=== PATIENT | male | born 1950 | race Caucasian/White ===

== ENCOUNTER 2018-03-06 15:14 | Observation (INO) | payer MEDICARE, OTHER ==
[2018-03-06 15:47] LABS: #Basophils 0.1 thou/uL (0.0-0.2); #Eosinphils 0.3 thou/uL (0.0-0.7); #Lymphocytes 2.3 thou/uL (1.20-3.40); #Monocytes 0.8 thou/uL (0.11-0.59); #Neutrophils 6.1 thou/uL (1.40-6.50); %Basophils 0.6 % (0.0-1.0); %Lymphocytes 24.6 % (21.0-51.0); %Monocytes 8.3 % (0.0-10.0); %Neutrophils 63.6 % (42.0-75.0); Hemoglobin 16.6 g/dL (14.0-18.0); Mean Corpuscular HGB CONC 34.2 g/dL (32.0-36.0); Mean Corpuscular Hemoglobin 32.6 pg (27.0-31.0); Mean Corpuscular Volume 95.3 fl (80.0-94.0); Mean Platelet Volume 7.3 fL (7.4-10.4); Platelet Count 145 thou/uL (130-400); Red Blood Cell (RBC) Count 5.11 mill/uL (4.70-6.10); White Blood Cell (WBC) Count 9.5 thou/uL (4.8-10.8)
--- NOTE | 2018-03-06 15:58 | RAD ---
CHEST 1 VIEW: COMPARISON: 05/06/16. HISTORY: Pain. FINDINGS: There are sternotomy wires. Normal cardiac silhouette. The pulmonary vessels and hilum are normal. Costophrenic angles are clear. No masses or consolidation. No pneumothorax or osseous abnormalitie s. IMPRESSION: No acute cardiopulmonary process. POS: [facility]
[2018-03-06 16:13] LABS: CKMB 3.4 ng/mL (0-6.6); Troponin I Less than 0.010 ng/mL (< 0.028)
[2018-03-06 16:14] LABS: ALT (SGPT) 18 U/L (8-55); AST (SGOT) 20 U/L (5-34); Albumin 4.1 g/dL (3.4-4.8); Alkaline Phosphatase 114 U/L (40-150); Anion Gap 12 mmol/L (10-20); BUN (Urea Nitrogen) 24 mg/dL (8.4-25.7); Bilirubin, Total 0.5 mg/dL (0.2-1.2); CK (CPK) 169 U/L (30-200); Calc. Creatinine Clearance 0 mL/min (70-130); Carbon Dioxide 20 mmol/L (23-31); Chloride 106 mmol/L (98-107); Estimated GFR-MDRD 86; Globulin 3.3 g/dL (2.4-3.5); Glucose 100 mg/dL (80-115); Potassium 4.1 mmol/L (3.5-5.1); Protein, Total 7.4 g/dL (5.8-8.1); Sodium 134 mmol/L (136-145)
[2018-03-06 18:59] LABS: Troponin I Less than 0.010 ng/mL (< 0.028)
[2018-03-06] MEDS ORDERED: Acetaminophen 325 MG TAB PO PRN (19:15)
[2018-03-06] MEDS ORDERED: Ondansetron HCl/PF 4 MG/2 ML Vial IVP PRN ×2 (19:15→19:18)
[2018-03-06] MEDS ORDERED: Ondansetron ODT 4 MG TAB SL PRN (19:15)
[2018-03-06] MEDS ORDERED: Ondansetron ODT 4 MG TAB PO PRN (19:18)
[2018-03-06] MEDS ORDERED: Dextrose 50% Abboject 50 ML SYRINGE SLOW IVP PRN (19:18)
[2018-03-06] MEDS ORDERED: HumaLOG 300 UNITS/3 ML VIAL SC PRN ×2 (19:18)
[2018-03-06] MEDS ORDERED: Dextrose 5% in Water 1,000 ML IV PRN (19:18)
[2018-03-06 19:24] VITALS: BMI 32.3
[2018-03-06] MEDS ORDERED: Enoxaparin Sodium 40 MG/0.4 ML SYRINGE SC SCH (19:30)
[2018-03-06 20:00] LABS: CKMB 2.9 ng/mL (0-6.6); Troponin I Less than 0.010 ng/mL (< 0.028)
[2018-03-06] MEDS: Nitroglycerin 2% Ointment 1 INCH/1 GM Packet TOP SCH (20:01)
[2018-03-06] MEDS: Famotidine 20 MG TAB PO SCH (20:02)
[2018-03-06] MEDS: Amlodipine 5 MG TAB PO SCH (20:02)
[2018-03-06] MEDS: Acetaminophen 325 MG TAB PO PRN (20:04)
--- NOTE | 2018-03-06 20:09 | HP ---
DATE OF ADMISSION: 03/06/2018 PRIMARY CARE PHYSICIAN: Out of town. PRIMARY VETERINARY PHYSIOLOGIST: Dr. Zepeda. TIME OF SERVICE: 1745 hours. CHIEF COMPLAINT: Chest pressure. HISTORY OF PRESENT ILLNESS: Mr. Wilson is a 67-year-old white male with history of diabetes, coronar y artery disease, status post bypass in 2014, paroxysmal atrial fibrillation, sciatica and mental ret ardation who presents to the emergency department today via EMS for chest pressure. The patient was working in his yard earlier today around 7:30, had no symptoms. He was spraying some bushes around 1300 hours today and developed chest pressure in the center of his chest. It did not radiate into his jaw or his arm. He was outside working and was already sweating, so does not know i f he had any new sweats. No shortness of breath, no fevers, chills, no cough or sputum production. No reflux symptoms. He took an aspirin prior to arrival. EMS was called and on route, they gave him sublingual nitroglyc fitz and his pain resolved. Workup in the emergency department was unremarkable. We were called for admit. The patient has no other further history. His mother insists that his bypass surgery was initially i n 2004; however, I am looking at the actual note from [address] Tolu Boucher. PAST MEDICAL HISTORY: 1. Paroxysmal atrial fibrillation. 2. Coronary artery disease, status post bypass surgery in 2014. 3. Mental retardation. 4. Sciatica. 5. Diabetes mellitus type 2. PAST SURGICAL HISTORY: 1. Include coronary artery bypass grafting in 2014. This consisted of a CHRISTENSEN to the LAD, reverse sa phenous vein graft to diagonal, reverse saphenous vein graft to obtuse marginal, and reverse saphenou s vein graft to the PDA. He also did a ligation of left atrial appendage and epicardial maze. 2. Hernia repair, remotely. 3. Tonsillectomy. HOME MEDICATIONS: 1. Benazepril 40 mg p.o. b.i.d. 2. Invokana 100 mg p.o. daily. 3. Amlodipine 5 mg p.o. b.i.d. 4. Aspirin 81 mg daily. ALLERGIES: ATORVASTATIN, MULTAQ, METFORMIN, and METOPROLOL, reactions are unknown. Apparently the M ULTAQ or the ATORVASTATIN made him "crazy." FAMILY HISTORY: Negative for clotting or bleeding disorder, no immune dysfunction and no premature c oronary artery disease. SOCIAL HISTORY: He is mentally retarded and lives at home with his mother. No IV drug use, no tobac co, no alcohol usage. He does not work. REVIEW OF SYSTEMS: All systems reviewed and negative except as stated as per HPI. PHYSICAL EXAMINATION: VITAL SIGNS: Temperature is 98.7, pulse 92, blood pressure 114/83, respiratory rate 26, satting 97% on room air. GENERAL: He is awake. He is alert. He is oriented x3. He is a well-developed, well-nourished olde r male, who appears to be in no distress. HEENT: Normocephalic and atraumatic. Pupils are equal, round, reactive to light bilaterally, mucous membranes are moist. He has no visible lesions. No thrush. NECK: Supple. He has no lymphadenopathy, JVD, or thyromegaly. HEART: He has normal carotid upstrokes without bruits. LUNGS: Clear to auscultation bilaterally. No wheezes, no rales, no rhonchi. He has no prolonged ex piratory phase. CARDIOVASCULAR: Normal S1 and S2. No S3 or S4. No audible murmurs. ABDOMEN: Soft. It is nontender, nondistended, no masses or organomegaly. Sternotomy wound is well healed. EXTREMITIES: Showed no cyanosis, no clubbing with 2+ distal pulses. Does have trace pedal edema. SKIN: Warm, moist, and well perfused. He has no other rashes or lesions. NEUROLOGIC: Cranial nerves II-XII are grossly intact. No focal deficits, 5/5 strength, and a normal speech pattern. MUSCULOSKELETAL: Normal to inspection. Large joints appeared normal. There is no inflammation. No palpable effusions. LABORATORY DATA: Sodium 134, potassium 4.1, chloride 106, bicarb 20, BUN 24, creatinine 0.87, glucos e 100 and calcium 9.0. Liver function is completely within normal limits. CBC showed a white count of 9.5 with normal differential, hemoglobin 16.6, hematocrit of 40.7, platelet count 145,000. CK-MB was normal 3.4, troponin I was undetectable less than 0.010. Chest x-ray showed no acute cardiopulmo nary disease. ASSESSMENT AND PLAN: 1. Chest pain: Place the patient on nitro paste, daily aspirin, his home medications. We will hold off on beta blockade due to his allergy. Watch him on the monitor overnight. We will get serial ca rdiac biomarkers; if these are negative, undergo nuclear stress test in the morning and if negative, can go home. If abnormal, then I would notify Dr. Zepeda. 2. Paroxysmal atrial fibrillation: The patient is not on any rate control. He is on amlodipine onl y. We will watch him on telemetry. EKG is currently in sinus rhythm. 3. Mental retardation. 4. History of sciatica. 5. History of diabetes mellitus type 2, on Invokana. Will use sliding scale insulin for correction and hold his medicines as he will be n.p.o. after midnight. 6. Hypertension, controlled with benazepril and amlodipine.
[2018-03-06 21:57] LABS: Troponin I Less than 0.010 ng/mL (< 0.028)
[2018-03-07 03:17] LABS: #Basophils 0.1 thou/uL (0.0-0.2); #Eosinphils 0.3 thou/uL (0.0-0.7); #Lymphocytes 1.9 thou/uL (1.20-3.40); #Monocytes 0.8 thou/uL (0.11-0.59); #Neutrophils 5.2 thou/uL (1.40-6.50); %Basophils 0.8 % (0.0-1.0); %Eosinophils 3.3 % (0.0-10.0); %Lymphocytes 23.2 % (21.0-51.0); %Monocytes 9.9 % (0.0-10.0); Hemoglobin 16.5 g/dL (14.0-18.0); Mean Corpuscular HGB CONC 33.4 g/dL (32.0-36.0); Mean Corpuscular Hemoglobin 32.2 pg (27.0-31.0); Mean Corpuscular Volume 96.2 fl (80.0-94.0); Mean Platelet Volume 7.1 fL (7.4-10.4); Platelet Count 144 thou/uL (130-400); Red Blood Cell (RBC) Count 5.12 mill/uL (4.70-6.10); White Blood Cell (WBC) Count 8.3 thou/uL (4.8-10.8)
[2018-03-07 03:39] LABS: Anion Gap 11 mmol/L (10-20); BUN (Urea Nitrogen) 19 mg/dL (8.4-25.7); Calc. Creatinine Clearance 111 mL/min (70-130); Calcium 9.2 mg/dL (7.8-10.44); Carbon Dioxide 26 mmol/L (23-31); Chloride 105 mmol/L (98-107); Cholesterol 139 mg/dl (< 200 Desired); Estimated GFR-MDRD 79; Glucose 103 mg/dL (80-115); HDL Cholesterol 35 mg/dL (>60 Neg Risk); LDL Cholesterol, Calculated 78 mg/dL; Magnesium 2.1 mg/dL (1.6-2.6); Potassium 4.5 mmol/L (3.5-5.1); Sodium 137 mmol/L (136-145); Triglycerides 131 mg/dL (Less than 150)
[2018-03-07 03:42] LABS: CKMB 3.3 ng/mL (0-6.6); Troponin I Less than 0.010 ng/mL (< 0.028)
[2018-03-07] MEDS: Nitroglycerin 2% Ointment 1 INCH/1 GM Packet TOP SCH ×2 (04:20→11:40)
[2018-03-07] MEDS: Famotidine 20 MG TAB PO SCH (07:46)
[2018-03-07] MEDS: Amlodipine 5 MG TAB PO SCH (07:46)
[2018-03-07] MEDS ORDERED: Aspirin 325 MG TAB PO SCH (09:00)
[2018-03-07 11:37] VITALS: BP 131/74; TEMP 98.3
[2018-03-07] MEDS: Acetaminophen 325 MG TAB PO PRN (11:45)
--- NOTE | 2018-03-07 12:11 | NM ---
NUCLEAR MEDICINE MYOCARDIAL PERFUSION SCAN: DATE: 03/07/18. COMPARISON: None. HISTORY: Chest pain, history of coronary artery disease. TECHNIQUE: SPECT imaging of the left ventricular myocardium is obtained during rest and stress following the int ravenous administration of 11.0 and 33.0 mCi Technetium 99m labeled sestamibi. FINDINGS: There is a fixed defect at the cardiac apex which may represent an area of prior ischemia. There is mild fixed defect involving the inferior wall, likely on the basis of diaphragmatic attenuation. No reversible defect is identified. TID is 1.09, EDV is 103 mL, ESV is 51 mL with a left ventricular ej ection fraction calculated at 51%. There is global hypokinesis noted on left ventricular wall motion imaging. IMPRESSION: 1. No reversible defect. 2. Fixed defect at cardiac apex. 3. Left ventricular ejection fraction 51% with mild global hypokinesis noted. POS: [facility]
[2018-03-07] MEDS ORDERED: ADENOSINE 60 MG/20 ML VIAL ONE (14:09)
--- NOTE | 2018-03-07 15:27 | DIS ---
DATE OF ADMISSION: 03/06/2018 DATE OF DISCHARGE: 03/07/2018 DISCHARGE DIAGNOSES: 1. Chest pain. 2. History of paroxysmal atrial fibrillation. 3. History of coronary artery disease, status post bypass surgery in 2014 with CHRISTENSEN to the LAD and s aphenous vein graft to the diagonal with reverse saphenous vein graft to the obtuse marginal, and rev erse saphenous vein graft to the PDA. 4. Mild mental retardation. 5. Diabetes mellitus. HISTORY: This patient is a 67-year-old white male with a history of diabetes and coronary artery dis ease, status post bypass in 2014 as stated above. The patient presented to the emergency department with chest pressure. The patient had been outside working when he developed some discomfort in his c hest without radiation or significantly associated symptoms. The patient took an aspirin and was sub sequently given nitroglycerin en route by EMS and was pain free in the emergency department. His ini tial workup was negative including normal troponins and no significant EKG findings. HOSPITAL COURSE: The patient was placed in observation status. He had serial troponins, which remai karina negative. He remained symptom free and subsequently underwent stress testing on the morning of , which revealed no reversible defect, fixed defect at the apex, likely attenuation artifact with an ejection fraction of 51% and mild global hypokinesis. The patient's previous echocardiogram from 2014 revealed an ejection fraction around 50%-55%. Given the fact that the patient had negative troponins and a stress test revealing no significant reversible ischemia or change in his ejection f raction, the patient was felt to be stable for discharge to home. DISCHARGE DISPOSITION: The patient will be discharged to home. DISCHARGE MEDICATIONS: He will continue with his usual home medications including amlodipine 5 mg p. o. b.i.d., aspirin 325 mg every day, benazepril 40 mg b.i.d., Invokana 100 mg q.p.m., glipizide ER 10 mg q.a.m., multivitamin 1 p.o. daily, and will have a new prescription for nitroglycerin sublingual to use p.r.n. for chest pain. DIET: The patient will remain on a heart healthy diet. DISCHARGE FOLLOWUP: He is to follow up with Dr. Zepeda this week. He should return to the emerge ncy department should he have any problems prior to that time. He is to keep his activity level mode st until he is evaluated by Dr. Zepeda.
== END 2018-03-07 14:12 | disposition home or self-care (01) ==
LOC: ERS 15:14 → 2SW 18:10
PROVIDERS: ADMIT Internal Medicine Infectious Disease; ATTEND Internal Medicine Infectious Disease
DX: R07.9 Chest pain, unspecified (principal); I48.0 Paroxysmal atrial fibrillation; I10 Essential (primary) hypertension; E11.9 Type 2 diabetes mellitus without complications; F79 Unspecified intellectual disabilities; I25.10 Atherosclerotic heart disease of native coronary artery without angina pectoris; Z79.82 Long term (current) use of aspirin; Z79.899 Other long term (current) drug therapy; Z95.1 Presence of aortocoronary bypass graft; Z88.8 Allergy status to other drugs, medicaments and biological substances
CPT/HCPCS: 71045; 78452; 80048; 80053; 80061; 82550; 82553 ×3; 82962 ×2; 83036; 83735; 84484 ×3; 85025 ×2; 93005; 93017; 96372; 99285; A9500; G0378; 36415; 36416; J0153; J1650

== ENCOUNTER 2018-03-31 09:49 | Emergency (ER) | payer MEDICARE, OTHER ==
[2018-03-31 11:02] LABS: #Eosinphils 0.1 thou/uL (0.0-0.7); #Monocytes 0.8 thou/uL (0.11-0.59); #Neutrophils 7.2 thou/uL (1.40-6.50); %Basophils 0.5 % (0.0-1.0); %Eosinophils 0.9 % (0.0-10.0); %Lymphocytes 19.6 % (21.0-51.0); %Monocytes 7.5 % (0.0-10.0); %Neutrophils 71.5 % (42.0-75.0); Hemoglobin 17.3 g/dL (14.0-18.0); Mean Corpuscular HGB CONC 34.2 g/dL (32.0-36.0); Mean Corpuscular Hemoglobin 32.1 pg (27.0-31.0); Mean Platelet Volume 7.5 fL (7.4-10.4); Platelet Count 141 thou/uL (130-400); RBC Distribution Width 11.8 % (11.5-14.5); White Blood Cell (WBC) Count 10.1 thou/uL (4.8-10.8)
--- NOTE | 2018-03-31 11:22 | RAD ---
PORTABLE CHEST ONE VIEW: Date: 03-31-18 Time: 10:23 a.m. History: Dyspnea. FINDINGS: Comparison is made with exam of 03-06-18. Changes of median sternotomy are again seen. The heart size is normal. The aorta is tortuous. The marissa gs are well expanded without focal areas of consolidation, pneumothorax, or pleural effusions. IMPRESSION: No radiographic evidence of acute cardiopulmonary process. POS: [facility]
[2018-03-31 11:23] LABS: ALT (SGPT) 16 U/L (8-55); AST (SGOT) 16 U/L (5-34); Albumin 4.3 g/dL (3.4-4.8); Alkaline Phosphatase 115 U/L (40-150); Anion Gap 12 mmol/L (10-20); BUN (Urea Nitrogen) 19 mg/dL (8.4-25.7); Bilirubin, Total 0.6 mg/dL (0.2-1.2); Calc. Creatinine Clearance 0 mL/min (70-130); Calcium 9.4 mg/dL (7.8-10.44); Carbon Dioxide 22 mmol/L (23-31); Chloride 103 mmol/L (98-107); Estimated GFR-MDRD 86; Globulin 3.3 g/dL (2.4-3.5); Glucose 166 mg/dL (80-115); Potassium 4.4 mmol/L (3.5-5.1); Protein, Total 7.6 g/dL (5.8-8.1); Sodium 133 mmol/L (136-145)
[2018-03-31 11:27] LABS: CKMB 3.4 ng/mL (0-6.6); Troponin I Less than 0.010 ng/mL (< 0.028)
== END 2018-03-31 13:52 | disposition home or self-care (01) ==
LOC: ERS 09:49
DX: R06.00 Dyspnea, unspecified (principal); I48.91 Unspecified atrial fibrillation; E11.9 Type 2 diabetes mellitus without complications; I10 Essential (primary) hypertension; Z79.82 Long term (current) use of aspirin; Z79.01 Long term (current) use of anticoagulants; Z79.899 Other long term (current) drug therapy
CPT/HCPCS: 36415; 71045; 80053; 82553; 83880; 84484; 85025; 85379; 93005; 94640; 94799; J7620

== ENCOUNTER 2019-03-28 12:31 | Observation (INO) | payer MEDICARE, OTHER ==
[2019-03-28 12:57] LABS: #Eosinphils 0.1 thou/uL (0.0-0.7); #Lymphocytes 1.9 thou/uL (1.20-3.40); #Monocytes 0.8 thou/uL (0.11-0.59); #Neutrophils 6.4 thou/uL (1.40-6.50); %Basophils 0.4 % (0.0-1.0); %Eosinophils 1.5 % (0.0-10.0); %Lymphocytes 20.4 % (21.0-51.0); %Monocytes 8.4 % (0.0-10.0); %Neutrophils 69.3 % (42.0-75.0); Hemoglobin 17.3 g/dL (14.0-18.0); Mean Corpuscular Hemoglobin 31.3 pg (27.0-31.0); Mean Corpuscular Volume 94.8 fL (78.0-98.0); Mean Platelet Volume 8.3 fL (7.4-10.4); Platelet Count 145 thou/uL (130-400); RBC Distribution Width 12.3 % (11.5-14.5); Red Blood Cell (RBC) Count 5.52 mill/uL (4.70-6.10); White Blood Cell (WBC) Count 9.2 thou/uL (4.8-10.8)
[2019-03-28 13:42] LABS: ALT (SGPT) 23 U/L (8-55); AST (SGOT) 26 U/L (5-34); Albumin 4.4 g/dL (3.4-4.8); Alkaline Phosphatase 135 U/L (40-150); Anion Gap 13 mmol/L (10-20); BUN (Urea Nitrogen) 26 mg/dL (8.4-25.7); Bilirubin, Total 0.7 mg/dL (0.2-1.2); Calc. Creatinine Clearance 0 mL/min (70-130); Calcium 9.7 mg/dL (7.8-10.44); Carbon Dioxide 20 mmol/L (23-31); Chloride 102 mmol/L (98-107); Estimated GFR-MDRD Greater than 90; Globulin 3.5 g/dL (2.4-3.5); Glucose 151 mg/dL (80-115); Potassium 4.7 mmol/L (3.5-5.1); Protein, Total 7.9 g/dL (5.8-8.1); Sodium 130 mmol/L (136-145)
[2019-03-28 14:02] LABS: CK (CPK) 182 U/L (30-200)
--- NOTE | 2019-03-28 14:06 | RAD ---
PORTABLE CHEST ONE VIEW: 03/28/19 at 12:48 p.m. HISTORY: Chest pain. FINDINGS: Comparison made with exam of 03/31/18. Changes of median sternotomy again seen. The lungs are expanded without focal areas of consolidation, pneumothoraces, or pleural effusions. The heart size is normal. IMPRESSION: No radiographic evidence of acute cardiopulmonary process. POS: [facility]
[2019-03-28] MEDS ORDERED: Aspirin 325 MG TAB ONE (14:21)
--- NOTE | 2019-03-28 14:23 | PDOC.FPRHP ---
- History of Present Illness Chief Complaint: Chest Pain History of Present Illness: 68 yo male here after being sent over from Dr. Zepeda office for chest pain. Pt reports having chest pain starting this morning. Reports pain as substernal. Describes pain as a big knot. States he feels like it did before. Says it feels like oxygen not getting to his heart. Hurts when laying in bed. Nothing made pain worse. Pain lasted for an hour. Pain went away on its own. Pt reports having episode of this chest pain almost every day. Doesn't know how long episodes last. Pt reports feeling SOB during episodes. Denies any nausea, vomiting, palpitations, sweating. Denies any headaches vision changes, cough, sore throat. Pt reports getting dizzy. Reports some numbness and tingling in both arms at times. Reports having rash on his chest. - Allergies/Adverse Reactions Allergies Allergy/AdvReac Type Severity Reaction Status Date / Time atorvastatin calcium Allergy Verified 05/06/16 16:57 [From Lipitor] dronedarone HCl [From Multaq] Allergy Verified 05/06/16 16:57 metformin Allergy HEADACHES Verified 05/27/15 15:28 metoprolol Allergy Verified 05/06/16 16:57 - Home Medications Medication Instructions Recorded Confirmed Type Multivit-Mins/Iron/Folic/Lycop 1 each PO DAILY 05/27/15 03/28/19 History [Centrum Ultra Men's Tablet] Amlodipine [Norvasc] 5 mg PO BID 05/06/16 03/28/19 History Aspirin [Ecotrin Regular Strength] 81 mg PO DAILY 05/06/16 03/28/19 History Benazepril HCl 40 mg PO BID 05/06/16 03/28/19 History Canagliflozin [Invokana] 100 mg PO QPM 05/06/16 03/28/19 History glipiZIDE [glipiZIDE ER] 10 mg PO QAM 03/06/18 03/28/19 History Nitroglycerin 0.4 mg SL Q5MIN PRN #30 tab.subl 03/07/18 03/28/19 Rx - History PMHx: Paroxysmal atrial fibrilation, CAD, Bypass in 2015, Mental Retardation, Sciatica, DMII PSHx: Bypass 2015- CHRISTENSEN to the LAD, reverse saphenous vein graft to diagnol, reverse saphenous vein graft to obtuse marginal, and reverse saphenous vein graft to the PDA. Did ligation of left atrial appendage and epicardial maze, Hernia repair, tonsillectomy FHx: Insignificant Social: Reports daily beer, Denies any tobacco or illicit drug use. Pt reports living by himself. Pt reports sister helping him with medial managment and helps with bills. - Review of Systems General: denies: fever/chills, weight/appetite/sleep changes Eyes: denies: eye pain, vision changes ENT: denies: nasal congestion, rhinorrhea Respiratory: reports: shortness of breath. denies: cough, congestion Cardiovascular: reports: chest pain. denies: palpitation, edema, paroxysmal nocturnal dyspnea, orthopnea Gastrointestinal: denies: nausea, vomiting, diarrhea, constipation, abdominal pain Genitourinary: denies: incontinence Skin: reports: rashes (reports pain in his previous cabg scar. States it is more red). denies: lesions, itching Musculoskeletal: reports: pain. denies: tenderness, stiffness Neurological: denies: numbness, syncope, seizure Psychological: denies: anxiety, depression - Vital signs BP: 119/69 HR: 91 RR: 20 Tmax: 89.4 Pox: 96% on RA Wt: 109 kg - Physical Exam Constitutional: NAD, awake, alert and oriented HEENT: normocephalic and atraumatic, PERRLA, EOMI, conjunctiva clear Neck: supple, no LAD Heart: normal S1/S2, no murmurs/rubs/gallops, pulses present, no edema, other ( Irregularly irregular rhythm) Lungs: CTAB, no respiratory distress, good air movement, no rales/rhonchi, no wheezing Abdomen: soft, non-tender, bowel sounds present, no masses/distention Musculoskeletal: normal structure, normal tone, ROM grossly normal Neurological: no focal deficit, CN II-XII intact Skin: no rash/lesions, good turgor, capillary refill <2 seconds Heme/Lymphatic: no unusual bruising or bleeding, no purpura Psychiatric: intact recent and remote memory FMR H&P: Results - Labs Result Diagrams: 03/28/19 12:40 03/28/19 12:40 Lab results: WBC 9.2 thou/uL (4.8-10.8) 03/28/19 12:40 Hgb 17.3 g/dL (14.0-18.0) 03/28/19 12:40 Hct 52.3 % (42.0-52.0) H 03/28/19 12:40 MCV 94.8 fL (78.0-98.0) 03/28/19 12:40 Plt Count 145 thou/uL (130-400) 03/28/19 12:40 Neutrophils % 69.3 % (42.0-75.0) 03/28/19 12:40 Sodium 130 mmol/L (136-145) L 03/28/19 12:40 Potassium 4.7 mmol/L (3.5-5.1) 03/28/19 12:40 Chloride 102 mmol/L (98-107) 03/28/19 12:40 Carbon Dioxide 20 mmol/L (23-31) L 03/28/19 12:40 BUN 26 mg/dL (8.4-25.7) H 03/28/19 12:40 Creatinine 0.84 mg/dL (0.7-1.3) 03/28/19 12:40 Glucose 151 mg/dL (80-115) H 03/28/19 12:40 Calcium 9.7 mg/dL (7.8-10.44) 03/28/19 12:40 Total Bilirubin 0.7 mg/dL (0.2-1.2) 03/28/19 12:40 AST 26 U/L (5-34) 03/28/19 12:40 ALT 23 U/L (8-55) 03/28/19 12:40 Alkaline Phosphatase 135 U/L (40-150) 03/28/19 12:40 Creatine Kinase 182 U/L (30-200) 03/28/19 12:40 Serum Total Protein 7.9 g/dL (5.8-8.1) 03/28/19 12:40 Albumin 4.4 g/dL (3.4-4.8) 03/28/19 12:40 - EKG Interpretation EKG: Atrial fibrillation - Radiology Interpretation Chest x-ray Status: image reviewed by me, report reviewed by me Additional comment: No acute cardiopulmonary abnormality FMR H&P: A/P - Problem List (1) Atypical chest pain Current Visit: Yes Status: Acute Code(s): R07.89 - OTHER CHEST PAIN (2) Paroxysmal atrial fibrillation Current Visit: Yes Status: Chronic Code(s): I48.0 - PAROXYSMAL ATRIAL FIBRILLATION (3) Hyponatremia Current Visit: Yes Status: Acute Code(s): E87.1 - HYPO-OSMOLALITY AND HYPONATREMIA (4) HTN (hypertension) Current Visit: Yes Status: Chronic Code(s): I10 - ESSENTIAL (PRIMARY) HYPERTENSION (5) Mental disability Current Visit: Yes Status: Chronic Code(s): F79 - UNSPECIFIED INTELLECTUAL DISABILITIES (6) CAD (coronary artery disease) of bypass graft Current Visit: No Status: Chronic Code(s): I25.810 - ATHEROSCLEROSIS OF CABG W/O ANGINA PECTORIS (7) Diabetes type 2, controlled Current Visit: No Status: Chronic Code(s): E11.9 - TYPE 2 DIABETES MELLITUS WITHOUT COMPLICATIONS - Plan Atypical chest pain, with concern for Unstable Angina -Sent by Dr. Zepeda from clinic, with recent positive stress. Patient has had chest pain at rest, reports it occurs daily. He has a history of 4 vessel CABG. -With substernal chest pain he reports SOB, occasional numbness down bilat arms -In ED: chest pain is resolved, EKG showed rate controlled Atrial fibrillation, given ASA -AM FLP pending. Continue home benazepril. -Dr. Zepeda following, appreciate recommendations -Family/MPOA not interested in cath, added imdur -Nitro and EKG PRN for chest pain. -admit to tele obs Atrial fibrillation, paroxysmal -Rate controlled DM2 -Diabetes hyperglycemia protocol, with mild SSI -Continue home glipizide, invokana -continue home lyrica Hyponatremia -BNP pending, no s/s of fluid overload -Pt reports he drink 1 beer daily, consider beer potomania -serum osmolality: low -assess urinary Na and osm HTN -BP well controlled -Continue home amlodipine Hx of Mental Retardation -MPOA is Diana rivera. [phone], . -Tried to contact sister, unable to contact her so far Daily alcohol use -Reports 1 beer/day -Ase protocol Diet: HH, CC PCP: Dr. Andrade DVT ppx: lovenox Dispo: admitted to tele obs Code status: DNAR per patient, will confirm with sister who is MPOA FMR H&P: Upper Level - Pertinent history I was with Dr. Rosie Fabian during the history taking of the patient. I scribed for her during the history. I made edits to above HPI as I saw fit. I agree with what is stated above and helped type what is seen above. Pt having signs of atypical chest pain going on for awhile now. Pt has hx of mental retardation. Sister is MPOA. Pain coms on at random times, not associated with exertion. Has SOB. - Pertinent findings No acute findings found on physical exam. Cardio: Irregularly Irregular, rate controlled. No murmurs or gallops. No JVD Resp: CTA-B. - Plan Date/Time: 03/28/19 1423 I,Vickey Gaspar. have evaluated this patient and agree with findings/plan as outlined by design intern resident. Pertinent changes/additions are listed here. Atypical Chest pain -Stress test pending. -Cardiology- Dr. Zepeda consulted. Added imdur. Follow recs. -Will give tylenol and nitro for pain -FLP, TSH, BNP pending -EKG prn for chest pain paroxysmal a. fib -rate controlled, continue to monitor DMII -continue home meds. mild SSI. Continue to monitor and adjust as needed. hyponatremia, mild Na- 130 -checking urine Na and serum osmol -Recommend PO fluids. Monitor with daily BMP. HTN -continue home meds. BP stable. Will continue to monitor as started Imdur for chest pain -Avoid BB for stress. Hx of Mental Retardation -MPOA sister. will try and contact. Addendum - Attending - Attending Attestation Date/Time: 03/28/19 2048 I personally evaluated the patient and discussed the management with Dr. Thomas Fabian I agree with the History, Examination, Assessment and Plan documented above with any addition or exceptions noted below- 68 yo male with h/o DM type 2, paroxysmal a-fib, and CAD s/p 4V CABG in [address] Zepeda office for chest pain. Pt reports having substernal chest pain starting this morning. Describes as a big knot/heaviness. Pt reports feeling SOB during episodes. Denies any nausea, vomiting, palpitations, sweating. Denies any headaches vision changes, cough, sore throat. Pt reports getting dizzy. PMH/PSH/Meds/SH reviewed and agree with resident's documentation. Afebrile VSS. Exam repeated by me and agree with resident's findings. Labs: WBC=9.2, H/H=17.3/52.3, Asu=313 , Qw=629, K=4.2, Hk=616, CO2=20, BUN/Cr=26/0.84, Fvtm=805, AST/ALT=26/23, TSH= 0.9807, Trop I < 0.010 x 3; EKG-afib rate 100, no ST changes. A/P: 1) Chest pain with h/o abnormal stress test- cardiac enzymes negative; will consult cardiology for further plan/possible cath. Started on imdur as per cardiology.
[2019-03-28] MEDS ORDERED: HumaLOG 300 UNITS/3 ML VIAL SC PRN (14:58)
[2019-03-28] MEDS ORDERED: Dextrose 50% Abboject 50 ML SYRINGE SLOW IVP PRN (14:58)
[2019-03-28] MEDS ORDERED: Ondansetron PF 4 MG/2 ML Vial IVP PRN (14:58)
[2019-03-28] MEDS ORDERED: Acetaminophen 650 MG Suppository PR PRN (14:58)
[2019-03-28] MEDS ORDERED: Ondansetron ODT 4 MG TAB PO PRN (14:58)
[2019-03-28] MEDS ORDERED: Acetaminophen 325 MG TAB PO PRN (14:58)
[2019-03-28] MEDS ORDERED: Dextrose 5% in Water 1,000 ML IV PRN (14:58)
[2019-03-28] MEDS ORDERED: Enoxaparin Sodium 40 MG/0.4 ML SYRINGE SC SCH (15:15)
[2019-03-28 15:45] VITALS: BMI 32.4
[2019-03-28 16:19] LABS: Troponin I Less than 0.010 ng/mL (< 0.028)
[2019-03-28] MEDS: Nitroglycerin 0.4 MG TAB (25 Tab Bottle) PO PRN ×3 (18:21→18:33)
[2019-03-28] MEDS ORDERED: Morphine 4 MG/ML VIAL ONE (18:42)
[2019-03-28 19:11] LABS: Troponin I Less than 0.010 ng/mL (< 0.028)
[2019-03-28] MEDS ORDERED: Morphine 2 MG/ML SYRINGE SLOW IVP SCH (19:15)
--- NOTE | 2019-03-28 20:39 | PDOC.EVN ---
Event Note - Event Note Event Note: Pt reported substernal chest pain around 1900. EKG w/o changes. Nitro x3 given and pain did resolve with IV Morphine. Plan to keep NPO tonight, but no plans at this point for cath or stress in AM as family elects not to have cath performed. Will speak with family again in AM regarding plans.
[2019-03-29 06:17] LABS: Anion Gap 13 mmol/L (10-20); BUN (Urea Nitrogen) 23 mg/dL (8.4-25.7); Calc. Creatinine Clearance 136 mL/min (70-130); Calcium 8.8 mg/dL (7.8-10.44); Carbon Dioxide 23 mmol/L (23-31); Cardiac Risk 4.8 (Less than 4.5); Chloride 103 mmol/L (98-107); Cholesterol 158 mg/dl (< 200 Desired); Estimated GFR-MDRD Greater than 90; Glucose 137 mg/dL (80-115); HDL Cholesterol 33 mg/dL (>60 Neg Risk); LDL Cholesterol, Calculated 75 mg/dL; Potassium 4.5 mmol/L (3.5-5.1); Sodium 134 mmol/L (136-145); Triglycerides 249 mg/dL (Less than 150)
--- NOTE | 2019-03-29 07:05 | PDOC.FM ---
- Subjective Subjective: Pt is awake, resting in bed. Pt states he can't remember for sure but says he thinks he had an episode of chest pain. Reports not having chest pain at this time. Denies any SOB. Denies any other acute problems at this time. Denies any N /V/D/C. - Objective MAR Reviewed: Yes Vital Signs & Weight: Vital Signs (12 hours) Temp Pulse Resp BP BP Pulse Ox 03/29/19 01:50 72 18 138/71 94 L 03/28/19 23:35 98.0 F 79 20 124/71 97 03/28/19 19:25 98.3 F 89 16 117/80 94 L Weight Weight 108.59 kg I&O: 03/28/19 03/29/19 03/30/19 06:59 06:59 06:59 Intake Total 250 Output Total 1200 Balance -950 Result Diagrams: 03/28/19 12:40 03/29/19 05:01 EKG Reviewed by me: Yes Radiology Reviewed by me: Yes (CXR: No acute process) Phys Exam - Physical Examination Constitutional: NAD HEENT: PERRLA, moist MMs, oral pharynx no lesions Neck: no nodes, no JVD, supple, full ROM Respiratory: no wheezing, no rales, no rhonchi, clear to auscultation bilateral Cardiovascular: no significant murmur, no rub, irregular Gastrointestinal: soft, non-tender, no distention, positive bowel sounds Musculoskeletal: no edema, pulses present Neurological: non-focal, moves all 4 limbs Lymphatic: no nodes Psychiatric: normal affect Deviation from normal: Pt appears to be with it. Pt does have underlying mental delya Skin: no rash, normal turgor, cap refill <2 seconds Dx/Plan (1) Atypical chest pain Code(s): R07.89 - OTHER CHEST PAIN Status: Acute (2) Paroxysmal atrial fibrillation Code(s): I48.0 - PAROXYSMAL ATRIAL FIBRILLATION Status: Chronic (3) Hyponatremia Code(s): E87.1 - HYPO-OSMOLALITY AND HYPONATREMIA Status: Acute (4) HTN (hypertension) Code(s): I10 - ESSENTIAL (PRIMARY) HYPERTENSION Status: Chronic (5) Mental disability Code(s): F79 - UNSPECIFIED INTELLECTUAL DISABILITIES Status: Chronic (6) CAD (coronary artery disease) of bypass graft Code(s): I25.810 - ATHEROSCLEROSIS OF CABG W/O ANGINA PECTORIS Status: Chronic (7) Diabetes type 2, controlled Code(s): E11.9 - TYPE 2 DIABETES MELLITUS WITHOUT COMPLICATIONS Status: Chronic - Plan Plan: Atypical Chest pain -Cardiology- Dr. Zepeda consulted. Added imdur. Follow recs. Is going to try and discuss with family about possible stress test. Sister is WILLIAMS and at this time stated she did not want any procedures. Pt NPO pending possible cath. -Pt had recent stress test in outside clinic a week ago. -Will give tylenol and nitro for pain -FLP shows elevated total cholesterol but LDL low. TSH normal, BNP 55 -EKG prn for chest pain- showed no acute changes. paroxysmal a. fib -rate controlled, continue to monitor DMII -continue home meds. mild SSI. Continue to monitor and adjust as needed. hyponatremia (resolved) Na- 134 -continue to monitor with daily BMP HTN -continue home meds. BP stable. Will continue to monitor as started Imdur for chest pain Hx of Mental Retardation -MPOA sister. She states does not want any intervention at this time. Will try and discuss cath with family again at this time -will consult Palliative Care to help in management of family discussion. Addendum - Attending - Attending Attestation Date/Time: 03/29/19 1005 I personally evaluated the patient and discussed the management with Dr. Vickey Gaspar I agree with the History, Examination, Assessment and Plan documented above with any addition or exceptions noted below. Pt resting in bed. Pt denies any more chest pain since last night. Pt states he talked with Dr. Zepeda and plan is to do a heart catheter if sister agrees.
[2019-03-29] MEDS ORDERED: Enoxaparin Sodium 40 MG/0.4 ML SYRINGE SC SCH (09:00)
[2019-03-29] MEDS: Multivitamin W/ Minerals 1 TAB PO SCH (09:16)
[2019-03-29] MEDS ORDERED: Communication Order-Pharmacy FS SCH (10:30)
[2019-03-29] MEDS: Sodium Chloride 0.9% 1,000 ML IV SCH (11:21)
[2019-03-29] MEDS ORDERED: Lidocaine 1% (PF) 30 ML VIAL ONE (11:45)
[2019-03-29] MEDS ORDERED: Midazolam HCl 2 mg/2 ml Vial ONE (12:36)
[2019-03-29] MEDS ORDERED: Fentanyl 100 MCG/2 ML VIAL ONE (12:36)
--- NOTE | 2019-03-29 13:26 | PDOC.PALCO ---
Palliative Care Consult - Consult Details Requesting Physician: Dr Gaspar Reason for Consult: goals of care, assistance with communication prognosis/ disease - Pertinent HPI Patient was sent from Dr Zepeda office to the ER at [facility] secondary to complaint of angina. Patient reports that chest pain had been present for a few days, he became short of breath and dizzy, however denies nausea, vomiting, diaphoresis. Seen in emergency room and subsequently admitted to the hospital. Palliative Care team consulted secondary to coordination of care/discussion of disease process and cardiovascular disease. Patient currently a DNR and Dr Zepeda is recommendation is a heart cath - Pertinent PMH Paroysmal Atrial Fib, CAD, Bypass, Mental retardation, DMII - Social History Smoking Status: Never smoker Smoking: no tobacco exposure Alcohol Use: rarely Drug Use History: none Living Situation: independent - Medications MAR Reviewed: Yes - Allergies Allergies/Adverse Reactions: Allergies Allergy/AdvReac Type Severity Reaction Status Date / Time atorvastatin calcium Allergy Verified 05/06/16 16:57 [From Lipitor] dronedarone HCl [From Multaq] Allergy Verified 05/06/16 16:57 metformin Allergy HEADACHES Verified 05/27/15 15:28 metoprolol Allergy Verified 05/06/16 16:57 - Subjective Paitent awake alert in his room. Discussed cath, DNR status. Patient lives alone but has a sister who handles financial decisions and is MPOA. Patient verbalized he understands heart cath will benefit him, is understanding of revoking DNR for procedure. Communicated with Dr Gaspar and Dr Hall. Sister has been notified and per Dr Hall is in agreement with Heart Cath. 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 - Objective Vital Signs: Vital Signs - Most Recent Temp Pulse Resp BP Pulse Ox 98.5 F 76 16 135/75 94 L 03/29/19 11:40 03/29/19 11:40 03/29/19 11:40 03/29/19 11:40 03/29/19 11:40 Palliative Performance Scale: 70 - Physical Exam Constitutional: NAD HEENT: moist MMs, EOMI Respiratory: no wheezing Cardiovascular: no significant murmur Gastrointestinal: soft, non-tender, positive bowel sounds Musculoskeletal: pulses present - Problem List (1) Palliative care encounter Code(s): Z51.5 - ENCOUNTER FOR PALLIATIVE CARE Current Visit: Yes Status: Acute Comments: Discussion in relation to DNR and recommendation of heart cath. (2) Atypical chest pain Code(s): R07.89 - OTHER CHEST PAIN Current Visit: Yes Status: Acute Comments: Denies angina at time of assessment (3) Mental disability Code(s): F79 - UNSPECIFIED INTELLECTUAL DISABILITIES Current Visit: Yes Status: Chronic Assessment: Oriented x 3 Comments: Paitent lives by himself, however a sister is MPOA - Plan/Recommendations Plan: *Patient will revoke DNR for heart cath *Reinstate DNR after procedure *Communicated with sister Celia Flores, Dr Gaspar, Dr Zepeda [50] minutes spent on this encounter with >50% of the time in counseling and coordination of care. Thank you for this very appropriate consult. *
[2019-03-29] MEDS ORDERED: Nitroglycerin 100MG/250ML BOT 250 ML ONE (13:35)
[2019-03-29] MEDS ORDERED: Iopamidol 370 76% 50 ML VIAL FS ONE (16:37)
[2019-03-29] MEDS ORDERED: Iopamidol 370 76% 100 ML VIAL ONE (16:37)
--- NOTE | 2019-03-29 18:16 | PRG ---
DATE OF SERVICE: 03/29/2019 Mr. Wilson today underwent coronary angiography. He does have complete occlusion of the right coronary artery. His graft to the right coronary artery is also occluded. He does have an RV marginal with a significant stenosis, but appears small. His distal LAD also has a significant lesion, but will be difficult to address given the tortuosity of the CHRISTENSEN. His recent stress study suggested ischemia to the inferior wall only and not to the lateral or anterior wall. From my standpoint, we would continue medical therapy. There were some reservations about proceeding with stent implantation per the family and the patient given long-term use of Plavix. At this point, there would be greater risks than benefits on proceeding with any further revascularization. We will continue with aspirin in addition to Imdur, statin, and beta-martin therapy. The patient has adamantly opposed against anticoagulation therapy. There have been some data showing low-dose Xarelto with improvement, but the patient is not interested. Plan is to proceed with discharge in a.m., as long as he is hemodynamically stable with close outpatient followup. Job ID: [id number]
--- NOTE | 2019-03-30 09:30 | PDOC.FM ---
- Subjective Subjective: Pt reports doing well. Denies any chest pain or SOB overnight. Denies any fever or chills. Denies any acute events overnight. Pt doing well. - Objective MAR Reviewed: Yes Vital Signs & Weight: Weight Weight 108.59 kg I&O: 03/29/19 03/30/19 03/31/19 06:59 06:59 06:59 Intake Total 250 900 Output Total 1200 300 Balance -950 600 Result Diagrams: 03/28/19 12:40 03/29/19 05:01 EKG Reviewed by me: Yes (A. fib) Radiology Reviewed by me: Yes (No new imaging to review) Phys Exam - Physical Examination Constitutional: NAD HEENT: PERRLA, moist MMs Neck: no nodes, supple, full ROM Respiratory: no wheezing, no rales, no rhonchi, clear to auscultation bilateral Cardiovascular: no significant murmur, no rub Irregularly irregular Gastrointestinal: soft, non-tender, positive bowel sounds Musculoskeletal: no edema, pulses present Neurological: non-focal, normal sensation, moves all 4 limbs Lymphatic: no nodes Psychiatric: normal affect, A&O x 3 Skin: no rash, normal turgor, cap refill <2 seconds Dx/Plan (1) Acute coronary syndrome Code(s): I24.9 - ACUTE ISCHEMIC HEART DISEASE, UNSPECIFIED Status: Acute (2) Atypical chest pain Code(s): R07.89 - OTHER CHEST PAIN Status: Ruled-out (3) Paroxysmal atrial fibrillation Code(s): I48.0 - PAROXYSMAL ATRIAL FIBRILLATION Status: Chronic (4) Hyponatremia Code(s): E87.1 - HYPO-OSMOLALITY AND HYPONATREMIA Status: Acute (5) HTN (hypertension) Code(s): I10 - ESSENTIAL (PRIMARY) HYPERTENSION Status: Chronic (6) Mental disability Code(s): F79 - UNSPECIFIED INTELLECTUAL DISABILITIES Status: Chronic (7) CAD (coronary artery disease) of bypass graft Code(s): I25.810 - ATHEROSCLEROSIS OF CABG W/O ANGINA PECTORIS Status: Chronic (8) Diabetes type 2, controlled Code(s): E11.9 - TYPE 2 DIABETES MELLITUS WITHOUT COMPLICATIONS Status: Chronic - Plan Plan: Acute Coronary Chest Pain -Cardiology- Dr. Zepeda consulted. Added imdur. Heart Cath showed complete occlusion of the R. coronary artery. Graft to R. coronary is also occluded. Has RV marginal w/ significant stenosis. Distal LAD also has significant lesion. They did not elect to stent at this time. Just recommends medical managment. -Pt had recent stress test in outside clinic a week ago. -Will give tylenol and nitro for pain -FLP shows elevated total cholesterol but LDL low. TSH normal, BNP 55 -EKG prn for chest pain- showed no acute changes. -On Imdur and statin. Cards recommend Beta martin paroxysmal a. fib -rate controlled, continue to monitor DMII -continue home meds. mild SSI. Continue to monitor and adjust as needed. hyponatremia (resolved) -continue to monitor as needed. HTN -Will need to adjust home meds and add a beta martin. BP stable. Will continue to monitor as started Imdur for chest pain Hx of Mental Retardation -MPOA sister. She states does not want any intervention at this time. Will try and discuss cath with family again at this time -will consult Palliative Care to help in management of family discussion. Addendum - Attending - Attending Attestation Date/Time: 03/30/19 1743 I personally evaluated the patient and discussed the management with Dr. Vickey Gaspar. I agree with the History, Examination, Assessment and Plan documented above with any addition or exceptions noted below. Pt had Heart Cath yesterday which showed multiple blockages. There were no stents as the risks outweighed the benefits. Cardiology recommended medical managment. Will continue imdur and statin therpy. They recommended BB therapy but pt had Metoprolol allergy on EMR. Reports side effect is dizziness. Will possibly start carvedilol and monitor. Pt stable for D/C at this time.
[2019-03-30] MEDS: Sodium Chloride 0.9% 1,000 ML IV SCH (09:42)
[2019-03-30] MEDS: Multivitamin W/ Minerals 1 TAB PO SCH (09:43)
[2019-03-30 11:40] VITALS: BP 125/65; TEMP 98.4
[2019-03-30 19:18] LABS: Anion Gap 10 mmol/L (10-20); BUN (Urea Nitrogen) 17 mg/dL (8.4-25.7); Calc. Creatinine Clearance 147 mL/min (70-130); Calcium 8.9 mg/dL (7.8-10.44); Carbon Dioxide 25 mmol/L (23-31); Chloride 102 mmol/L (98-107); Estimated GFR-MDRD Greater than 90; Glucose 122 mg/dL (80-115); Potassium 4.4 mmol/L (3.5-5.1); Sodium 133 mmol/L (136-145)
--- NOTE | 2019-04-01 11:05 | EKG ---
Test Reason : CP Blood Pressure : / mmHG Vent. Rate : 086 BPM Atrial Rate : 111 BPM P-R Int : 000 ms QRS Dur : 112 ms QT Int : 348 ms P-R-T Axes : 000 -21 125 degrees QTc Int : 416 ms Atrial fibrillation with a competing junctional pacemaker with premature ventricular or aberrantly co nducted complexes Abnormal QRS-T angle, consider primary T wave abnormality Abnormal ECG Confirmed by ADRIEN PORTILLO ([id number]), mapping editor SHARI REYES ([id number]) on 04/01/2019 11:04:48 AM Referred By: Confirmed By:ADRIEN PORTILLO
== END 2019-03-30 12:32 | disposition home or self-care (01) ==
LOC: ERS 12:31 → 2SW 14:15
PROVIDERS: ADMIT Family Medicine; ATTEND Family Medicine
PROC: 4A023N7 Measurement of Cardiac Sampling and Pressure, Left Heart, Percutaneous Approach (ICD-10-PCS; principal; 2019-03-28)
PROC: B2111ZZ Fluoroscopy of Multiple Coronary Arteries using Low Osmolar Contrast (ICD-10-PCS; 2019-03-28)
PROC: B3101ZZ Fluoroscopy of Thoracic Aorta using Low Osmolar Contrast (ICD-10-PCS; 2019-03-28)
PROC: B21F1ZZ Fluoroscopy of Other Bypass Graft using Low Osmolar Contrast (ICD-10-PCS; 2019-03-28)
DX: I24.9 Acute ischemic heart disease, unspecified (principal); I25.82 Chronic total occlusion of coronary artery; I48.0 Paroxysmal atrial fibrillation; E87.1 Hypo-osmolality and hyponatremia; I10 Essential (primary) hypertension; F79 Unspecified intellectual disabilities; I25.810 Atherosclerosis of coronary artery bypass graft(s) without angina pectoris; E11.9 Type 2 diabetes mellitus without complications; Z51.5 Encounter for palliative care; Z88.8 Allergy status to other drugs, medicaments and biological substances; Z79.84 Long term (current) use of oral hypoglycemic drugs; Z79.82 Long term (current) use of aspirin; Z79.899 Other long term (current) drug therapy
CPT/HCPCS: 71045; 76942; 80048 ×2; 80061; 82550; 82962 ×3; 83880; 83935; 84300; 84484 ×2; 93005; 93455; 93567; 94760 ×2; 96372; 96374; 99285; C1769; G0378 ×2; 36415; 36416; 80053; 84443; 85025; 93010; 99152; 99153; J1644; J1650; J2001; J2250; J2270; J3010; Q9967

== ENCOUNTER 2019-07-12 13:07 | Outpatient (CLI) | payer MEDICARE ==
--- NOTE | 2019-07-18 10:44 | PFT ---
PATIENT HISTORY: HEIGHT: 69 IN WEIGHT: 230 LBS SMOKER: NO HOW LONG: NEVER PACKS PER DAY: PRODUCTIVE COUGH: LUNG DISEASE: PHYSICIAN INTERPRETATION FINAL REPORT: Patient had a hard time with directions. PFT data: FVC 2.86 (69%), FEV1 2.22 (72%), FEV1/FVC 0.77. RV 3.45 (137%), TLC 6.92 (103%) DIFFUSION 26.20 (93%) There is a symmetric reduction to both the FEV1 and FVC. The ratio is normal suggestive of a restrictive profile. Residual Volume and Total Lung Capacity fall with in the normal limits. Diffusion Capacity is normal. IMPRESSION: Overall, these pulmonary function studies are most consistent with mild restrictive lung disease with significant improvement following the administration of a bronchodilator., and normal gas exchange. Clinical correlation for early restrictive processes should be considered. I have no priors for comparison. Body habitus maybe contributing to these findings. Dog License Officer Supervisor: TONIO Staff Occupational Therapist: TONIO SUNG
== END 2019-07-12 13:08 | disposition home or self-care (01) ==
LOC: CP 13:07
PROVIDERS: ATTEND Internal Medicine Critical Care Medicine
DX: R06.00 Dyspnea, unspecified (principal)
CPT/HCPCS: 94060; 94727; 94729

== ENCOUNTER 2019-08-16 19:30 | Outpatient (CLI) | payer MEDICARE | END 2019-08-16 19:31 | disposition home or self-care (01) | LOC: SLEEPLAB 19:30 | PROVIDERS: ATTEND Internal Medicine Critical Care Medicine | DX: G47.33 Obstructive sleep apnea (adult) (pediatric) (principal); R53.83 Other fatigue; R06.83 Snoring; I48.91 Unspecified atrial fibrillation; I50.9 Heart failure, unspecified; I25.10 Atherosclerotic heart disease of native coronary artery without angina pectoris | CPT/HCPCS: 95811 ==

== ENCOUNTER 2019-12-13 00:52 | Inpatient (IN) | payer MEDICARE ==
[2019-12-13 01:30] LABS: #Eosinphils 0.1 thou/uL (0.0-0.7); #Lymphocytes 1.3 thou/uL (1.20-3.40); #Monocytes 0.7 thou/uL (0.11-0.59); %Basophils 0.6 % (0.0-1.0); %Eosinophils 1.8 % (0.0-10.0); %Lymphocytes 15.6 % (21.0-51.0); %Monocytes 8.1 % (0.0-10.0); Hemoglobin 16.2 g/dL (14.0-18.0); Mean Corpuscular HGB CONC 34.3 g/dL (32.0-36.0); Mean Corpuscular Hemoglobin 33.7 pg (27.0-31.0); Mean Corpuscular Volume 98.2 fL (78.0-98.0); Platelet Count 120 thou/uL (130-400); RBC Distribution Width 11.7 % (11.5-14.5); Red Blood Cell (RBC) Count 4.81 mill/uL (4.70-6.10); White Blood Cell (WBC) Count 8.1 thou/uL (4.8-10.8)
[2019-12-13 01:51] LABS: ALT (SGPT) 15 U/L (8-55); AST (SGOT) 16 U/L (5-34); Albumin 3.8 g/dL (3.4-4.8); Alkaline Phosphatase 155 U/L (40-110); Anion Gap 15 mmol/L (10-20); BUN (Urea Nitrogen) 22 mg/dL (8.4-25.7); Bilirubin, Total 0.4 mg/dL (0.2-1.2); Calc. Creatinine Clearance 0 mL/min (70-130); Calcium 9.1 mg/dL (7.8-10.44); Carbon Dioxide 19 mmol/L (23-31); Chloride 107 mmol/L (98-107); Estimated GFR-MDRD 74; Globulin 3.2 g/dL (2.4-3.5); Glucose 321 mg/dL (80-115); Potassium 4.4 mmol/L (3.5-5.1); Sodium 137 mmol/L (136-145)
[2019-12-13 02:28] LABS: CKMB 4.7 ng/mL (0-6.6)
[2019-12-13] MEDS ORDERED: Enoxaparin Sodium 80 MG/0.8 ML SYRINGE ONE (03:07)
[2019-12-13] MEDS ORDERED: Enoxaparin Sodium 30 MG/0.3 ML SYRINGE ONE (03:07)
[2019-12-13] MEDS ORDERED: Nitroglycerin 0.4 MG TAB (25 Tab Bottle) SL PRN (04:05)
[2019-12-13] MEDS ORDERED: Ondansetron PF 4 MG/2 ML Vial IVP PRN (04:05)
[2019-12-13] MEDS ORDERED: Acetaminophen 325 MG TAB PO PRN (04:05)
[2019-12-13] MEDS ORDERED: Senokot S 8.6-50 MG TAB PO PRN (04:05)
[2019-12-13] MEDS ORDERED: Dextrose 50% Abboject 50 ML SYRINGE SLOW IVP PRN (04:08)
[2019-12-13] MEDS ORDERED: Dextrose 5% in Water 1,000 ML IV PRN (04:08)
--- NOTE | 2019-12-13 04:11 | PDOC.HHP ---
Hospitalist HPI - History of Present Illness Chest pain History of Present Illness: 69 yo male with CAD s/p CABG in 2015, HTN, A.FIB, HTN presents to ER due to 10/ 10 right sided stabbing chest pain without any radiation that started suddenly last night when he was sitting after supper. No aggravating or relieving factors. Associated with palpitations, lightheadedness, shortness of breath. No cough, wheezing, fever, chills, N/V/D/C, abdominal pain. No burning or pain with urination, swelling or rashes. Reports PND but no orthopnea. ED Course: Found to have NSTEMI. Got Lovenox full dose x 1. Hospitalist ROS - Review of Systems All other systems reviewed; all pertinent +/- noted in HPI/Subj Hospitalist History - Past Medical History Cardiac: reports: AFIB, CAD, HTN, Hyperlipidemia PLANT ACCOUNTANT: reports: Other (Intellectual disability) Musculoskeletal: reports: Other (Sciatica) Endocrine: reports: Diabetes - Past Surgical History Past Surgical History: reports: CABG, Hernia Repair, Tonsillectomy, Other ( Epicardial maze) - Family History Family History: reports: no pertinent history (Reviewed) - Social History Smoking Status: Never smoker Alcohol: reports: Occassional Drugs: reports: none Living Situation: Alone - Exam General Appearance: NAD, awake alert Eye: PERRL, anicteric sclera ENT: normocephalic atraumatic, no oropharyngeal lesions, moist mucosa Neck: supple, symmetric, no JVD, no thyromegaly, no lymphadenopathy, no carotid bruit Heart: RRR, no murmur, no gallops, no rubs, normal peripheral pulses Heart - other findings: no chest wall tenderness to palpation Respiratory: CTAB, no wheezes, no rales, no ronchi, normal chest expansion, no tachypnea Respiratory - other findings: not using accessory muscles Gastrointestinal: soft, non-tender, non-distended, normal bowel sounds, no palpable masses Extremities: no cyanosis, no clubbing, no edema Skin: normal turgor, no lesions, no rashes Neurological: cranial nerve grossly intact, normal sensation to touch, no weakness, no focal deficits Musculoskeletal: normal tone, normal strength, no muscle wasting Psychiatric: normal behavior, oriented to place. negative: oriented to person, oriented to time Hospitalist Results - Labs Result Diagrams: 12/13/19 01:21 12/13/19 01:21 Lab results: WBC 8.1 thou/uL (4.8-10.8) 12/13/19 01:21 Hgb 16.2 g/dL (14.0-18.0) 12/13/19 01:21 Hct 47.2 % (42.0-52.0) 12/13/19 01:21 MCV 98.2 fL (78.0-98.0) H 12/13/19 01:21 Plt Count 120 thou/uL (130-400) L 12/13/19 01:21 Neutrophils % 74.0 % (42.0-75.0) 12/13/19 01:21 Sodium 137 mmol/L (136-145) 12/13/19 01:21 Potassium 4.4 mmol/L (3.5-5.1) 12/13/19 01:21 Chloride 107 mmol/L (98-107) 12/13/19 01:21 Carbon Dioxide 19 mmol/L (23-31) L 12/13/19 01:21 BUN 22 mg/dL (8.4-25.7) 12/13/19 01:21 Creatinine 1.00 mg/dL (0.7-1.3) 12/13/19 01:21 Glucose 321 mg/dL (80-115) H 12/13/19 01:21 Calcium 9.1 mg/dL (7.8-10.44) 12/13/19 01:21 Total Bilirubin 0.4 mg/dL (0.2-1.2) 12/13/19 01:21 AST 16 U/L (5-34) 12/13/19 01:21 ALT 15 U/L (8-55) 12/13/19 01:21 Alkaline Phosphatase 155 U/L (40-110) H 12/13/19 01:21 CK-MB (CK-2) 4.7 ng/mL (0-6.6) 12/13/19 01:21 Troponin I 0.496 ng/mL (< 0.028) H* 12/13/19 01:21 B-Natriuretic Peptide 144.7 pg/mL (0-100) H 12/13/19 01:21 Serum Total Protein 7.0 g/dL (5.8-8.1) 12/13/19 01:21 Albumin 3.8 g/dL (3.4-4.8) 12/13/19 01:21 - EKG Interpretation EKG: EKG personally reviewed -Atrial Fibrillation; T-inversions in leads I & aVL - Radiology Interpretation Chest x-ray Status: image reviewed by me (No consolidation or CP angle blunting seen; mild pulm. vasc. congestion) Hospitalist H&P A/P - Problem (1) NSTEMI (non-ST elevated myocardial infarction) Code(s): I21.4 - NON-ST ELEVATION (NSTEMI) MYOCARDIAL INFARCTION Status: Acute Assessment and Plan: Admit to inpatient status. Expected to stay at least 2 midnights. High risk due to risk of lethal arrhythmias. Got ASA & Full dose lovenox in ER Continue the same Plavix load and daily Patient allergic to statin and BB therapies Cardio consult [facility] from March, with multivessel disease. MPOA refused any interventions at that time. Conservative medical management of NSTEMI NTG patch and morphine PRN pain (2) DM (diabetes mellitus) Code(s): E11.9 - TYPE 2 DIABETES MELLITUS WITHOUT COMPLICATIONS Status: Chronic Qualifiers: Diabetes mellitus type: type 2 Diabetes mellitus extermination supervisor insulin use: unspecified extermination supervisor insulin use status Diabetes mellitus complication status : with hyperglycemia Qualified Code(s): E11.65 - Type 2 diabetes mellitus with hyperglycemia Assessment and Plan: Check HA1C Diabetic diet and SSI Monitor sugars and adjust regimen accordingly (3) CAD (coronary artery disease) of bypass graft Code(s): I25.810 - ATHEROSCLEROSIS OF CABG W/O ANGINA PECTORIS Status: Chronic Qualifiers: [place] vs. transplanted heart: [place] heart Associated angina: with other forms of angina Qualified Code(s): I25.708 - Atherosclerosis of coronary artery bypass graft(s), unspecified, with other forms of angina pectoris Assessment and Plan: As mentioned above, currently with NSTEMI Cardiology consult ASA & plavix therapy Patient is allergic to BB & statin therapy. (4) HTN (hypertension) Code(s): I10 - ESSENTIAL (PRIMARY) HYPERTENSION Status: Chronic Qualifiers: Hypertension type: essential hypertension Qualified Code(s): I10 - Essential (primary) hypertension Assessment and Plan: Stable BP Monitor BP and adjust meds accordingly (5) Paroxysmal atrial fibrillation Code(s): I48.0 - PAROXYSMAL ATRIAL FIBRILLATION Status: Chronic Assessment and Plan: Not on extermination supervisor anticoagulation Cardiology consult Rate controlled Full dose lovenox for NSTEMI Will follow cardiology recommendations regarding anticoagulant meds (6) Mental disability Code(s): F79 - UNSPECIFIED INTELLECTUAL DISABILITIES Status: Chronic - Plan Plan: Unable to obtain due to intellectual disability Will DW MPOA in AM
[2019-12-13] MEDS ORDERED: Nitroglycerin 2% Ointment 1 INCH/1 GM Packet TOP SCH (04:30)
[2019-12-13] MEDS ORDERED: Clopidogrel Bisulfate 300 MG TAB PO SCH (04:30)
[2019-12-13 04:41] LABS: Troponin I 0.744 ng/mL (< 0.028)
[2019-12-13 05:38] LABS: Hemoglobin A1c 8.2 % (4.0-6.0)
[2019-12-13 06:47] VITALS: BMI 33.2
--- NOTE | 2019-12-13 07:52 | RAD ---
XR Chest 1 View Portable HISTORY: Chest pain COMPARISON: 07/05/2019 FINDINGS: The heart size is normal. Changes of median sternotomy are again seen. The lungs are well e xpanded without focal areas of consolidation, pneumothorax or pleural effusions. IMPRESSION: No radiographic evidence of acute cardiopulmonary process.
[2019-12-13 08:24] LABS: Troponin I 0.997 ng/mL (< 0.028)
[2019-12-13] MEDS: Enoxaparin Sodium 120 MG/0.8 ML SYRINGE SC SCH ×2 (10:05→21:22)
[2019-12-13] MEDS: Aspirin 81 mg Enteric Coated Tablet PO SCH (10:05)
[2019-12-13] MEDS ORDERED: Carvedilol 6.25 MG TAB PO SCH (11:30)
[2019-12-13] MEDS ORDERED: Lisinopril 20 MG TAB PO SCH (11:30)
[2019-12-13] MEDS ORDERED: Multivitamin W/ Minerals 1 TAB PO SCH (11:30)
[2019-12-13] MEDS ORDERED: Amlodipine 5 MG TAB PO SCH (11:30)
[2019-12-13] MEDS ORDERED: Iopamidol 370 76% 100 ML VIAL ONE (13:36)
--- NOTE | 2019-12-13 14:01 | CON ---
DATE OF CONSULTATION: 12/13/2019 REASON FOR CONSULTATION: Elevated troponin. HISTORY OF PRESENT ILLNESS: Mr. Wilson is a very pleasant 69-year-old gentleman, who I have seen and evaluated in the past. He has a previous history of [id number] mitral incompetence in addition to atrial fibrillation, CAD status bypass surgery. He recently presented with chest pain. The pain lasted for 10 hours. His troponin was mildly elevated at 0.9. Mr. Wilson did undergo coronary angiography in 03/2019. He had a patent CHRISTENSEN to the LAD with small vessel disease present at the apex. He had 80% lesion. He also had a saphenous vein graft to an OM branch that appeared very small with a lesion estimated at 80%. He also had a saphenous vein graft to the right coronary artery that is occluded in addition to RV marginal branch with an 80% lesion. He is currently pain free. PAST MEDICAL HISTORY: As above including hypertension, diabetes mellitus, mitral regurgitation. HOME MEDICATIONS: Include, 1. Carvedilol. 2. Lasix. 3. Ventolin. 4. Amlodipine. 5. Benazepril. 6. Isosorbide. 7. Lyrica. 8. Glipizide. 9. Jardiance. 10. Aspirin. PAST SURGICAL HISTORY: CABG x4. REVIEW OF SYSTEMS: Ten-point review of systems is reviewed and as above, otherwise negative. PHYSICAL EXAMINATION: GENERAL: Patient is a pleasant male who is in no acute distress. The patient appears their stated age. VITAL SIGNS: Blood pressure 161/84, pulse 76, temperature 98. NEUROLOGIC: The patient is alert and oriented x3 with no focal neurologic deficits. HEENT: Sclerae without icterus. Mouth has moist mucous membranes with normal pallor. NECK: No JVD. Carotid upstroke brisk. No bruits bilaterally. LUNGS: Clear to auscultation with unlabored respirations. BACK: No scoliosis or kyphosis. CARDIAC: Regular rate and rhythm with normal S1 and S2. No S3 or S4 noted. No significant rubs, murmurs, thrills, or gallops noted throughout the precordium. PMI is not displaced. There is no parasternal heave. ABDOMEN: Soft, nontender, nondistended. No peritoneal signs present. No hepatosplenomegaly. No abnormal striae. EXTREMITIES: 2+ femoral and 2+ dorsalis pedis pulses. No cyanosis, clubbing, or edema. SKIN: No gross abnormalities. LABORATORY DATA: Peak troponin 0.9, BNP of 144, CK-MB 4.7. IMPRESSION: 1. Elevated troponin. 2. Coronary artery disease. 3. Status post bypass surgery. 4. Atrial fibrillation. RECOMMENDATIONS: Mr. Wilson' symptoms could certainly be due to unstable angina. This may also be due to a small vessel coronary artery disease. I discussed the case with his sister, who is a power of state's attorney. Mr. Wilson is not able to make his own decisions based on his mental incompetence. She states he did have much trouble recently with managing his medications. He has not been taking his medications as scheduled. After reviewing his angio and after discussing the case with the sister, the family would like to proceed with the continued medical therapy. They understand the risks of worsening AR. After reviewing the films, the patient does have a very small vessel disease and may not be amenable to percutaneous intervention. At this point, recommend managing blood pressure aggressively. Continue Lovenox in addition to Plavix and aspirin. The patient has not taken anticoagulation therapy in the past and understands the risk of CVA. His family has opted against anticoagulation therapy. We would also recommend increasing isosorbide to 90 mg q.a.m. and adding Ranexa. We will continue monitor closely. Job ID: [id number]
[2019-12-13] MEDS: Nitroglycerin 2% Ointment 1 INCH/1 GM Packet TOP SCH ×2 (14:42→21:21)
--- NOTE | 2019-12-13 16:54 | CT ---
CT ANGIOGRAM THORAX WITH CONTRAST: (CTA pulmonary angiogram) DATE: 12/13/2019 HISTORY: 69-year-old male with dyspnea and elevated d-dimer. TECHNIQUE: IV injection of iodinated contrast. Scan acquisition timing attempted to coincide with iodinated contrast bolus reaching maximal density in pulmonary arteries. 3-D MIP reconstructions. FINDINGS: Pulmonary thromboembolism: None. Lungs: No consolidation or edema. Pneumothorax: None. Pleural effusion: None. Thoracic aorta: No dissection or aneurysm. Coronary arteries: Heavy calcification of left main, LAD, LCx, and probably RCA. Sternotomy wires. Small sliding hiatal hernia. IMPRESSION: 1. No pulmonary thromboembolism. 2. Coronary atherosclerosis due to calcified coronary lesion. ICD 10: I25.84 3. Small sliding hiatal hernia.
[2019-12-13] MEDS: HumaLOG 300 UNITS/3 ML VIAL SC PRN (18:13)
[2019-12-13] MEDS: Mometasone/Formoterol 120 PUFF INHALER INH SCH (18:55)
[2019-12-13] MEDS ORDERED: Sodium Chloride 0.9% 1,000 ML IV SCH (19:30)
[2019-12-13] MEDS ORDERED: Pregabalin 75 MG CAP PO SCH (21:00)
[2019-12-13] MEDS ORDERED: Non-Formulary Item 1 EACH (Budesonide/Formoterol Fumarate [Budesonide-Formoterol 160-4.5] PO SCH (21:00)
[2019-12-13] MEDS ORDERED: Carvedilol 3.125 MG TAB PO SCH (21:00)
[2019-12-13] MEDS: Carvedilol 6.25 MG TAB PO SCH (21:20)
[2019-12-13] MEDS: Pregabalin 75 MG CAP PO SCH (23:56)
[2019-12-14 05:09] LABS: ALT (SGPT) 13 U/L (8-55); AST (SGOT) 17 U/L (5-34); Albumin 3.4 g/dL (3.4-4.8); Alkaline Phosphatase 100 U/L (40-110); Anion Gap 10 mmol/L (10-20); BUN (Urea Nitrogen) 17 mg/dL (8.4-25.7); Bilirubin, Total 0.7 mg/dL (0.2-1.2); Calc. Creatinine Clearance 139 mL/min (70-130); Calcium 8.6 mg/dL (7.8-10.44); Carbon Dioxide 25 mmol/L (23-31); Chloride 106 mmol/L (98-107); Cholesterol 155 mg/dl (< 200 Desired); Estimated GFR-MDRD Greater than 90; Globulin 2.9 g/dL (2.4-3.5); Glucose 124 mg/dL (80-115); HDL Cholesterol 31 mg/dL (>60 Neg Risk); LDL Cholesterol, Calculated 82 mg/dL; Potassium 3.9 mmol/L (3.5-5.1); Protein, Total 6.3 g/dL (5.8-8.1); Sodium 137 mmol/L (136-145); Triglycerides 209 mg/dL (Less than 150)
[2019-12-14 05:56] LABS: #Eosinphils 0.2 thou/uL (0.0-0.7); #Lymphocytes 1.6 thou/uL (1.20-3.40); #Monocytes 0.7 thou/uL (0.11-0.59); #Neutrophils 3.7 thou/uL (1.40-6.50); %Basophils 0.3 % (0.0-1.0); %Eosinophils 2.7 % (0.0-10.0); %Lymphocytes 25.5 % (21.0-51.0); %Monocytes 11.8 % (0.0-10.0); %Neutrophils 59.8 % (42.0-75.0); Hemoglobin 14.9 g/dL (14.0-18.0); Mean Corpuscular HGB CONC 33.1 g/dL (32.0-36.0); Mean Corpuscular Hemoglobin 32.7 pg (27.0-31.0); Mean Corpuscular Volume 98.9 fL (78.0-98.0); Mean Platelet Volume 8.7 fL (7.4-10.4); Platelet Count 106 thou/uL (130-400); RBC Distribution Width 11.8 % (11.5-14.5); Red Blood Cell (RBC) Count 4.57 mill/uL (4.70-6.10); White Blood Cell (WBC) Count 6.2 thou/uL (4.8-10.8)
[2019-12-14] MEDS: Nitroglycerin 2% Ointment 1 INCH/1 GM Packet TOP SCH ×3 (06:17→22:50)
[2019-12-14] MEDS: Mometasone/Formoterol 120 PUFF INHALER INH SCH ×2 (06:44→18:43)
[2019-12-14 07:44] LABS: CKMB 3.2 ng/mL (0-6.6)
[2019-12-14 07:46] LABS: Critical Call Chem Troponin I RESULT DECREASING; Troponin I 0.867 ng/mL (< 0.028)
--- NOTE | 2019-12-14 08:50 | PRG ---
DATE OF SERVICE: 12/14/2019 SUBJECTIVE: Mr. Wilson this morning began having more pain. His troponin peaked at 0.9. It was 0.8 this morning. His CK-MB was normal. OBJECTIVE: VITAL SIGNS: Blood pressure 170/90, pulse 75, temperature 98.3. LUNGS: Clear to auscultation. HEART: Regular rate and rhythm. ABDOMEN: Soft, nontender, nondistended. EXTREMITIES: No edema. PERTINENT LABORATORY DATA: Hemoglobin 14.9. Creatinine 0.78. IMPRESSION: 1. Unstable angina. 2. Coronary artery disease. 3. Status post bypass surgery. 4. Atrial fibrillation. RECOMMENDATIONS: It is very difficult to read Mr. Wilson. His troponin is elevated, but is downtrending. His CK-MB is also within normal limits. Given his continued symptoms of angina in addition to elevated troponin, I would recommend coronary angiography with possible PCI. I discussed the procedure in full detail with his sister, Diana. Initially, we were trying to proceed with a more conservative approach. Based on his continued symptoms with elevated troponin, I feel obligated to proceed with a more aggressive approach. I did review his films. He does have small vessel disease. There is no significant change. We then recommend continued conservative therapy. Risks of procedure included not limited to following: , stroke, DE, need for emergency surgery, loss of limb, bleeding, and infection, as well as a reaction to the dye causing kidney failure and needing long-term dialysis. I also discussed the risks of PCI to include all of the above including coronary dissection and perforation in addition to acute stent thrombosis and restenosis. All questions about the procedure were answered. Given the above, the patient agreed to proceed with coronary angiography and possible PCI. All questions answered. Given the above, the patient agreed to proceed with above procedure. Results discussed with Diana, his power of blood bank laboratory technologist. Job ID: [id number]
[2019-12-14] MEDS ORDERED: Midazolam HCl 2 mg/2 ml Vial ONE ×2 (08:51→12:25)
[2019-12-14] MEDS ORDERED: Fentanyl 100 MCG/2 ML VIAL ONE ×2 (08:51→12:25)
[2019-12-14] MEDS ORDERED: Amlodipine 5 MG TAB PO SCH (09:00)
[2019-12-14] MEDS ORDERED: Clopidogrel Bisulfate 75 MG TAB PO SCH (09:00)
[2019-12-14] MEDS ORDERED: BENAZEPRIL HCL PO SCH (09:00)
[2019-12-14] MEDS ORDERED: Iopamidol 370 76% 50 ML VIAL FS ONE ×2 (09:12)
[2019-12-14] MEDS ORDERED: Heparin 10,000 UNITS/1 ML VIAL ONE ×2 (09:12→12:36)
[2019-12-14] MEDS ORDERED: Iopamidol 370 76% 100 ML VIAL ONE ×2 (09:12)
[2019-12-14] MEDS ORDERED: Clopidogrel Bisulfate 300 MG TAB ONE ×2 (09:31→12:41)
[2019-12-14] MEDS ORDERED: Sodium Chloride 0.9% 1,000 ML IV SCH ×2 (09:45→13:15)
[2019-12-14] MEDS ORDERED: Nitroglycerin 0.4 MG TAB (25 Tab Bottle) ONE (11:15)
[2019-12-14] MEDS ORDERED: Morphine 2 MG/ML SYRINGE ONE ×2 (11:22→11:33)
[2019-12-14] MEDS ORDERED: Morphine 4 MG/ML VIAL ONE (11:59)
[2019-12-14] MEDS ORDERED: Lidocaine 1% (PF) 30 ML VIAL ONE (12:03)
[2019-12-14] MEDS ORDERED: Aggrastat 12.5 MG/250 ML 250 ML ONE (13:12)
[2019-12-14] MEDS ORDERED: Nitroglycerin 50 MG/250 ML BOT 250 ML ONE (13:13)
[2019-12-14] MEDS ORDERED: Aggrastat 12.5 MG/250 ML 250 ML IVPB SCH (13:15)
--- NOTE | 2019-12-14 14:19 | PRG ---
DATE OF SERVICE: Mr. Wilson began having severe chest pain 2 hours after the initial procedure. The patient underwent PTCA only to the ostium of the saphenous vein graft to the diagonal branch. EKG was unchanged. Patient continued to have pain despite morphine and nitroglycerin. It was decided to proceed to the laboratory miller to further assess the area. There was concern for recoil after PTCA only. The vessel appeared very small. The patient underwent repeat angio. He was found to have significant stenosis within the area that underwent PTCA. He underwent PTCA once again with a 2.0 x 12 mm Emerge balloon catheter. After multiple views, it was decided to proceed with stent implantation. A 2.25 x 12 mm Synergy stent was placed successfully. It was inflated to 11 atmospheres. Postdilatation performed with a 2.5 x 8 mm Emerge balloon catheter. There was excellent angiographic result at the end of the study with no immediate complications. Job ID: [id number]
[2019-12-14] MEDS: Carvedilol 6.25 MG TAB PO SCH ×2 (14:20→20:13)
[2019-12-14] MEDS: Lisinopril 20 MG TAB PO SCH (14:21)
[2019-12-14] MEDS: Amlodipine 5 MG TAB PO SCH (14:22)
[2019-12-14] MEDS: Aspirin 81 mg Enteric Coated Tablet PO SCH (14:24)
[2019-12-14] MEDS: Multivitamin W/ Minerals 1 TAB PO SCH (14:24)
--- NOTE | 2019-12-14 14:58 | PDOC.HOSPP ---
- Subjective Encounter Date: 12/14/19 Encounter Time: 08:40 Subjective: Pt seen for followup re: NSTEMI. Reports chest pain. No nausea or vomiting. - Objective Vital Signs & Weight: Vital Signs (12 hours) Temp Pulse Resp BP BP Pulse Ox 12/14/19 14:22 75 171/111 H 12/14/19 14:21 171/111 H 12/14/19 14:20 171/111 H 12/14/19 08:05 98.3 F 75 18 173/95 H 94 L 12/14/19 06:45 96 12/14/19 06:44 72 16 96 12/14/19 04:00 98.3 F 61 18 141/56 H 95 Weight Admit Weight 238 lb 3 oz Weight 238 lb 3 oz Most Recent Monitor Data Heart Rate from ECG 73 NIBP 154/99 NIBP BP-Mean 117 Respiration from ECG 17 SpO2 97 I&O: 12/13/19 12/14/19 12/15/19 06:59 06:59 06:59 Intake Total 1660 376 Output Total 700 350 Balance 960 26 Result Diagrams: 12/14/19 04:18 12/14/19 04:18 Additional Labs: Accuchecks 12/14/19 12/13/19 12/13/19 05:49 20:25 16:46 POC Glucose 137 H 137 H 174 H Labs and MARs reviewed by me EKG Reviewed by me: Yes (Tele: bennett jon) Hospitalist ROS - Review of Systems Cardiovascular: reports: chest pain. denies: palpitations, orthopnea, paroxysmal noc. dyspnea, edema, light headedness Gastrointestinal: denies: nausea, vomiting, abdominal pain, diarrhea, constipation, melena, hematochezia - Medication Medications: Active Medications Generic Name Dose Route Start Last Admin Trade Name Freq PRN Reason Stop Dose Admin Amlodipine Besylate 5 mg 12/14/19 09:00 12/14/19 14:22 Norvasc PO 5 mg DAILY LIZ Administration Aspirin 81 mg 12/13/19 09:00 12/14/19 14:24 Ecotrin PO Not Given DAILY LIZ Carvedilol 12.5 mg 12/13/19 21:00 12/14/19 14:20 Coreg PO 12.5 mg BID LIZ Administration Glipizide 10 mg 12/13/19 17:00 03/05/20 14:24 Glucotrol Xl PO Not Given BID-WM [facility] Insulin Human Lispro 0 units 12/13/19 04:08 12/13/19 18:13 Humalog SC 2 unit .MODERATE SLIDING SC PRN Administration Moderate Correctional Scale Iron/Minerals/Multivitamins 1 tab 12/14/19 09:00 12/14/19 14:24 Theragran M PO Not Given DAILY LIZ Isosorbide Mononitrate 90 mg 12/14/19 09:00 12/14/19 14:19 Imdur PO 90 mg DAILY LIZ Administration Lisinopril 40 mg 12/14/19 09:00 12/14/19 14:21 Zestril PO 40 mg DAILY LIZ Administration Mometasone Furoate/Formoterol Fumar 2 puff 12/13/19 18:30 12/14/19 06:44 Dulera 200 Mcg/5 Mcg Inhaler INH 2 puff BID-RT LIZ Administration Nitroglycerin 0.5 inch 12/13/19 14:00 12/14/19 14:25 Nitro-Bid 2% Ointment TOP Not Given Q8HR [facility] Pregabalin 75 mg 12/13/19 21:00 12/13/19 23:56 Lyrica PO Not Given HS LIZ - Exam General - other findings: Obese Eye: anicteric sclera ENT: moist mucosa Neck: supple Heart: no rubs, irregular Respiratory: CTAB Gastrointestinal: soft, non-tender Neurological: no weakness Psychiatric: normal affect, normal behavior Hosp A/P - Plan - Problem (1) NSTEMI (non-ST elevated myocardial infarction) Code(s): I21.4 - NON-ST ELEVATION (NSTEMI) MYOCARDIAL INFARCTION Status: Acute Assessment and Plan: Pt to go for cath today. Received Lovenox, aspirin and Plavix. (2) DM (diabetes mellitus) Code(s): E11.9 - TYPE 2 DIABETES MELLITUS WITHOUT COMPLICATIONS Status: Chronic Qualifiers: Diabetes mellitus type: type 2 Diabetes mellitus superintendent container terminal insulin use: unspecified superintendent container terminal insulin use status Diabetes mellitus complication status : with hyperglycemia Qualified Code(s): E11.65 - Type 2 diabetes mellitus with hyperglycemia Assessment and Plan: Reasonable control of blood sugars (3) HTN (hypertension) Code(s): I10 - ESSENTIAL (PRIMARY) HYPERTENSION Status: Chronic Qualifiers: Hypertension type: essential hypertension Qualified Code(s): I10 - Essential (primary) hypertension Assessment and Plan: Monitor vital signs and titrate antihypertensives as needed (4) Paroxysmal atrial fibrillation Code(s): I48.0 - PAROXYSMAL ATRIAL FIBRILLATION Status: Chronic Assessment and Plan: Rate controlled Follow cardiology recommendations regarding anticoagulant meds
[2019-12-14] MEDS ORDERED: Nitroglycerin 50 MG/250 ML BOT 250 ML IVPB SCH (15:00)
[2019-12-14] MEDS: Enoxaparin Sodium 120 MG/0.8 ML SYRINGE SC SCH (15:45)
[2019-12-14] MEDS: Morphine 2 MG/ML SYRINGE SLOW IVP PRN ×2 (17:46→20:08)
[2019-12-14] MEDS ORDERED: Albuterol Sulfate 2.5 mg/0.5 ml Neb ONE (18:41)
[2019-12-14] MEDS: Pregabalin 75 MG CAP PO SCH (20:13)
[2019-12-15 03:30] LABS: #Eosinphils 0.1 thou/uL (0.0-0.7); #Lymphocytes 1.1 thou/uL (1.20-3.40); #Monocytes 0.9 thou/uL (0.11-0.59); #Neutrophils 6.7 thou/uL (1.40-6.50); %Basophils 0.2 % (0.0-1.0); %Eosinophils 1.4 % (0.0-10.0); %Lymphocytes 12.3 % (21.0-51.0); %Monocytes 9.8 % (0.0-10.0); %Neutrophils 76.3 % (42.0-75.0); Hemoglobin 14.9 g/dL (14.0-18.0); Mean Corpuscular HGB CONC 33.6 g/dL (32.0-36.0); Mean Corpuscular Hemoglobin 33.3 pg (27.0-31.0); Mean Corpuscular Volume 99.2 fL (78.0-98.0); Mean Platelet Volume 8.2 fL (7.4-10.4); Platelet Count 110 thou/uL (130-400); RBC Distribution Width 11.7 % (11.5-14.5); Red Blood Cell (RBC) Count 4.47 mill/uL (4.70-6.10); White Blood Cell (WBC) Count 8.8 thou/uL (4.8-10.8)
[2019-12-15 03:43] LABS: ALT (SGPT) 12 U/L (8-55); AST (SGOT) 13 U/L (5-34); Albumin 3.3 g/dL (3.4-4.8); Alkaline Phosphatase 102 U/L (40-110); Anion Gap 8 mmol/L (10-20); BUN (Urea Nitrogen) 13 mg/dL (8.4-25.7); Bilirubin, Total 0.7 mg/dL (0.2-1.2); Calc. Creatinine Clearance 133 mL/min (70-130); Calcium 8.4 mg/dL (7.8-10.44); Carbon Dioxide 25 mmol/L (23-31); Chloride 105 mmol/L (98-107); Estimated GFR-MDRD Greater than 90; Globulin 2.8 g/dL (2.4-3.5); Glucose 236 mg/dL (80-115); Potassium 4.3 mmol/L (3.5-5.1); Protein, Total 6.1 g/dL (5.8-8.1); Sodium 134 mmol/L (136-145)
[2019-12-15] MEDS: HumaLOG 300 UNITS/3 ML VIAL SC PRN ×3 (06:23→16:05)
[2019-12-15] MEDS: Nitroglycerin 2% Ointment 1 INCH/1 GM Packet TOP SCH ×3 (06:23→21:17)
[2019-12-15] MEDS: Mometasone/Formoterol 120 PUFF INHALER INH SCH ×2 (07:19→18:30)
[2019-12-15] MEDS: Amlodipine 5 MG TAB PO SCH (07:55)
[2019-12-15] MEDS: Aspirin 81 mg Enteric Coated Tablet PO SCH (07:55)
[2019-12-15] MEDS: Clopidogrel Bisulfate 75 MG TAB PO SCH (07:55)
[2019-12-15] MEDS: Carvedilol 6.25 MG TAB PO SCH ×2 (07:56→21:16)
[2019-12-15] MEDS: Multivitamin W/ Minerals 1 TAB PO SCH (07:56)
[2019-12-15] MEDS: Lisinopril 20 MG TAB PO SCH (09:01)
--- NOTE | 2019-12-15 12:35 | CON ---
DATE OF CONSULTATION: HISTORY OF PRESENT ILLNESS: Julio Wilson is a 69-year-old gentleman, who presented from [facility] with chest pain. He has been in the ER on the 4th, today is the 6th. We have been consulted due to ICU care. Underwent cardiac catheterization twice. Please review the Cardiology's note. He has right-sided chest pain on arrival, took nitroglycerin. Known history of carotid artery disease. He appears to have bypass surgery done. PAST MEDICAL HISTORY: Atrial fibrillation, diabetes, hypertension, chronic pain, mentally challenged, apparently retardation. PREVIOUS SURGERIES: Bypass, hernia repair, tonsillectomy, cardiac catheterization. HOME MEDICATIONS: Includes multiple 1. Albuterol HFA. 2. Lyrica. 3. Symbicort 2 puffs twice a day. 4. Norvasc 1 tablet. 5. Benazepril one tablet. 6. Lasix 1. 7. Jardiance one tablet. 8. Nitroglycerin. 9. ISMO 60. SOCIAL HISTORY: Tobacco apparently none. Alcohol, social. He had a recent sleep study done, which showed sleep apnea with a CPAP of 12 cm. He does not have a machine. Dr. Chowdary saw him. He had a PFT done in July by Dr. Chowdary which also showed mild restrictive problem. His FEV1 was 72%, FVC was 69%. PHYSICAL EXAMINATION: GENERAL: Awake, alert, responsive, in no distress. VITAL SIGNS: Blood pressure 141/99, pulse 76, saturations , respiratory rate 18. CHEST: No wheezing, crackles. CARDIAC: Normal S1, S2. No gallops. ABDOMEN: No masses. LABORATORY DATA: Unremarkable. His chest x-ray on 12/12 shows no acute infiltrates. ASSESSMENT: 1. Coronary artery disease, status post catheterization, status post angioplasty. Please review the Cardiology's note. 2. Sleep apnea, severe, corrected with 12 cm nasal CPAP though he is yet to get a machine. 3. Mild restrictive pulmonary impairment. 4. Mentally challenged. 5. Chronic pain. 6. Diabetes. Pulmonary anna, I agree with present treatment. Supportive care. Primary will follow while in the ICU. A followup with Dr. Chowdary on outpatient basis Consultation note, 70 minutes, 50% direct patient care. Job ID: [id number]
--- NOTE | 2019-12-15 17:35 | PDOC.HOSPP ---
- Subjective Encounter Date: 12/15/19 Encounter Time: 07:00 Subjective: Pt seen for followup re: NSTEMI. Denies chest pain or shortness of breath. - Objective Vital Signs & Weight: Vital Signs (12 hours) Temp Pulse Pulse BP BP BP Pulse Ox 12/15/19 12:00 97.8 F 12/15/19 09:18 74 132/89 126/91 H 12/15/19 09:01 132/89 12/15/19 08:00 98.5 F 100 12/15/19 07:56 141/99 H 12/15/19 07:55 76 141/99 H Pulse Ox 12/15/19 12:00 12/15/19 09:18 99 12/15/19 09:01 12/15/19 08:00 12/15/19 07:56 12/15/19 07:55 Weight Admit Weight 238 lb 3 oz Weight 238 lb 3 oz Most Recent Monitor Data Heart Rate from ECG 86 NIBP 175/123 NIBP BP-Mean 140 Respiration from ECG 21 SpO2 98 I&O: 12/14/19 12/15/19 12/16/19 06:59 06:59 06:59 Intake Total 1660 1152.8 800 Output Total 700 1825 390 Balance 960 -672.2 410 Result Diagrams: 12/15/19 03:15 12/15/19 03:15 Additional Labs: Accuchecks 12/15/19 12/14/19 12/14/19 10:40 20:38 17:36 POC Glucose 231 H 137 H 137 H Labs and MARs reviewed by me EKG Reviewed by me: Yes (Tele: bennett jon) Hospitalist ROS - Review of Systems Cardiovascular: denies: chest pain, palpitations, orthopnea, paroxysmal noc. dyspnea, edema, light headedness Skin: denies: rash, lesions, margarita, bruising - Medication Medications: Active Medications Generic Name Dose Route Start Last Admin Trade Name Freq PRN Reason Stop Dose Admin Acetaminophen 650 mg 12/13/19 04:05 12/15/19 02:27 Tylenol PO 650 mg Q4H PRN Administration Headache/Fever/Mild Pain (1-3) Amlodipine Besylate 5 mg 12/14/19 09:00 12/15/19 07:55 Norvasc PO 5 mg DAILY LIZ Administration Aspirin 81 mg 12/13/19 09:00 03/06/20 07:55 Ecotrin PO 81 mg DAILY LIZ Administration Carvedilol 12.5 mg 12/13/19 21:00 12/15/19 07:56 Coreg PO 12.5 mg BID LIZ Administration Clopidogrel Bisulfate 75 mg 12/15/19 09:00 12/15/19 07:55 Plavix PO 75 mg DAILY LIZ Administration Glipizide 10 mg 12/13/19 17:00 12/15/19 16:28 Glucotrol Xl PO 10 mg BID-WM LIZ Administration Insulin Human Lispro 0 units 12/13/19 04:08 12/15/19 16:05 Humalog SC 2 unit .MODERATE SLIDING SC PRN Administration Moderate Correctional Scale Iron/Minerals/Multivitamins 1 tab 12/14/19 09:00 12/15/19 07:56 Theragran M PO 1 tab DAILY LIZ Administration Isosorbide Mononitrate 90 mg 12/14/19 09:00 12/15/19 09:02 Imdur PO 90 mg DAILY LIZ Administration Lisinopril 40 mg 12/14/19 09:00 12/15/19 09:01 Zestril PO 40 mg DAILY LIZ Administration Mometasone Furoate/Formoterol Fumar 2 puff 12/13/19 18:30 12/15/19 07:19 Dulera 200 Mcg/5 Mcg Inhaler INH 2 puff BID-RT LIZ Administration Morphine Sulfate 2 mg 12/13/19 04:05 12/14/19 20:08 Morphine SLOW IVP 2 mg Q5M PRN Administration Chest Pain Nitroglycerin 0.5 inch 12/13/19 14:00 12/15/19 12:54 Nitro-Bid 2% Ointment TOP 0.5 inch Q8HR LIZ Administration Pregabalin 75 mg 12/13/19 21:00 12/14/19 20:13 Lyrica PO 75 mg HS LIZ Administration - Exam General - other findings: Obese Eye: anicteric sclera ENT: moist mucosa Neck: supple Heart: RRR Respiratory: CTAB Gastrointestinal: soft, non-tender Extremities: no cyanosis Skin: no lesions Psychiatric: normal affect Hosp A/P - Plan - Problem (1) NSTEMI (non-ST elevated myocardial infarction) Code(s): I21.4 - NON-ST ELEVATION (NSTEMI) MYOCARDIAL INFARCTION Status: Acute Assessment and Plan: s/p cath x2 yesterday. Continue aspirin and Plavix. (2) DM (diabetes mellitus) Code(s): E11.9 - TYPE 2 DIABETES MELLITUS WITHOUT COMPLICATIONS Status: Chronic Qualifiers: Diabetes mellitus type: type 2 Diabetes mellitus bed bug exterminator insulin use: unspecified fci insulin use status Diabetes mellitus complication status : with hyperglycemia Qualified Code(s): E11.65 - Type 2 diabetes mellitus with hyperglycemia Assessment and Plan: Continue accuchecks and insulin sliding scale. (3) HTN (hypertension) Code(s): I10 - ESSENTIAL (PRIMARY) HYPERTENSION Status: Chronic Qualifiers: Hypertension type: essential hypertension Qualified Code(s): I10 - Essential (primary) hypertension Assessment and Plan: Monitor vital signs (4) Paroxysmal atrial fibrillation Code(s): I48.0 - PAROXYSMAL ATRIAL FIBRILLATION Status: Chronic Assessment and Plan: Rate controlled
[2019-12-15] MEDS: Pregabalin 75 MG CAP PO SCH (21:16)
[2019-12-16] MEDS: Nitroglycerin 2% Ointment 1 INCH/1 GM Packet TOP SCH (06:22)
[2019-12-16] MEDS: Mometasone/Formoterol 120 PUFF INHALER INH SCH (06:50)
[2019-12-16] MEDS: Aspirin 81 mg Enteric Coated Tablet PO SCH (08:36)
[2019-12-16] MEDS: Carvedilol 6.25 MG TAB PO SCH (08:36)
[2019-12-16] MEDS: Amlodipine 5 MG TAB PO SCH (08:38)
[2019-12-16] MEDS: Multivitamin W/ Minerals 1 TAB PO SCH (08:39)
[2019-12-16] MEDS: Lisinopril 20 MG TAB PO SCH (08:39)
[2019-12-16] MEDS: Clopidogrel Bisulfate 75 MG TAB PO SCH (08:39)
[2019-12-16] MEDS: HumaLOG 300 UNITS/3 ML VIAL SC PRN (08:40)
--- NOTE | 2019-12-16 11:05 | PRG ---
DATE OF SERVICE: 12/16/2019 SUBJECTIVE: This morning, he has been doing well. He wants to go home. No chest pain. No shortness of breath. OBJECTIVE: VITAL SIGNS: Temperature 97, blood pressure 163/84, respiratory rate 18, and pulse 80. CHEST: No wheezing or crackles. CARDIAC: Normal S1, S2. No gallops. ABDOMEN: No masses. ASSESSMENT: Chronic obstructive pulmonary disease, sleep apnea, coronary artery disease status post cardiac intervention. Pulmonary anna, stable enough to be discharged home any time as per Cardiology. Follow up with his primary jack of all trades. Job ID: [id number]
[2019-12-16 11:20] VITALS: TEMP 98.6
--- NOTE | 2019-12-16 12:23 | EKG ---
Test Reason : Blood Pressure : / mmHG Vent. Rate : 076 BPM Atrial Rate : 079 BPM P-R Int : 000 ms QRS Dur : 122 ms QT Int : 402 ms P-R-T Axes : 000 201 110 degrees QTc Int : 452 ms Atrial fibrillation Right superior axis deviation Non-specific intra-ventricular conduction delay Nonspecific ST abnormality Abnormal ECG Confirmed by ADRIEN PORTILLO ([id number]), editor in chief newspaper SHARI REYES ([id number]) on 12/16/2019 12:22:42 PM Referred By: Confirmed By:ADRIEN PORTILLO
[2019-12-16 12:39] VITALS: BP 149/77
--- NOTE | 2019-12-17 03:50 | DIS ---
DATE OF ADMISSION: 12/13/2019 DATE OF DISCHARGE: 12/16/2019 PRIMARY CARE PROVIDER: Dr. Peralta. DISCHARGE DIAGNOSES: 1. [id number] myocardial infarction. 2. History of paroxysmal atrial fibrillation. 3. Hyponatremia. 4. Hypoalbuminemia. CONDITION OF PATIENT ON THE DAY OF DISCHARGE: Stable. I assessed Mr. Wilson on the day of discharge. He denies any chest pain or shortness of breath. Vital signs are stable. S1 and S2 are heard, regular. Lungs are clear to auscultation bilaterally. CONSULTATIONS DURING THIS HOSPITALIZATION: Cardiology, Dr. Zepeda. DISCHARGE MEDICATIONS: He has been started on Plavix 75 mg daily. Otherwise, no change was made to his pre-admission home medications, which include: 1. Ventolin HFA p.r.n. 2. Amlodipine 5 mg daily. 3. Aspirin 81 mg daily. 4. Benazepril 40 mg daily. 5. Budesonide/formoterol two puffs 2 times a day. 6. Coreg 12.5 mg 2 times a day. 7. Jardiance 10 mg daily. 8. Furosemide 40 mg daily. 9. Glipizide 10 mg 2 times a day. 10. Multivitamins one tablet daily. 11. Lyrica 75 mg at bedtime. 12. Nitroglycerin p.r.n. 13. Tylenol p.r.n. 14. Isosorbide mononitrate 60 mg daily. POST ACUTE CARE FOLLOWUP: With primary care provider in [address] Zepeda in 2 to 3 weeks. ACTIVITY: No restrictions. DIET: Diabetic and heart healthy. HOSPITAL COURSE: Mr. Wilson is a pleasant 69-year-old gentleman, who was admitted to [facility] on 12/13/2019, for [id number] myocardial infarction. He was seen by Cardiology Service. Family initially wanted medical therapy; however, he continued to have chest pain. He underwent cardiac catheterization on 12/13/2019. He was found to have severe multivessel disease. PTCA was performed at the ostium of the SVG to the D1. He continued to have chest pain following the procedure. He was taken to veterinarian laboratory animal care again and underwent successful stent to the SVG to diagonal with a 2.25 x 12 Synergy stent. He has been started on Plavix. He will need to follow up with Cardiology Service as outpatient. Following the procedure, he was free of chest pain. He is being discharged home in a stable condition. 2D echocardiogram during this hospitalization showed left ventricular ejection fraction of 50% to 55%. Diastolic function could not be assessed secondary to atrial fibrillation. He was offered anticoagulant therapy for atrial fibrillation, but his family opted against anticoagulation. That is why, he is not on anticoagulation for atrial fibrillation. CT angiogram of the chest during this hospitalization did not show any evidence of pulmonary thromboembolism. He had small sliding hiatal hernia. On the day of discharge, he has sodium 134, potassium 4.3, creatinine 0.81. White count 8800, hemoglobin 14.9, and platelet count 110,000. Many thanks for allowing me to participate in your patient's care. Please feel free to contact me with any questions or concerns. DISCHARGE DESTINATION: Home. TIME SPENT: Total amount of time spent coordinating this discharge: 32 minutes. Job ID: [id number]
--- NOTE | 2019-12-22 09:53 | PQF ---
JEYSON WILSON JUAN WHITNEY MD [id number] [facility]-259 [id number] CLINICAL DOCUMENTATION CLARIFICATION FORM: POST DISCHARGE Addendum to original discharge summary date: ____ Late entry note date: __ DATE:12/22/2019 ATTN:JUAN WHITNEY MD Please exercise your independent, professional judgment in responding to the clarification form. Clinical indicators are provided on the bottom of this form for your review Please check appropriate box(s): [ ] SVG Stenosis is a complication of PTCA [ ] SVG Stenosis is not a complication of PTCA [ ] Other diagnosis [ ] Unable to determine In addition, please specify: Present on Admission (POA): [ ] Yes [ ] No [ ] Unable to determine CLINICAL INDICATORS - SIGNS / SYMPTOMS / LABS Mr Wilson began having severe chest pain 2 hours after the initial procedure . The patient underwent PTCA only to the ostium of the saphenous vein graft to the diagonal branch. EKG was unchanged -Documented in PN on 12/12 by Juan Whitney MD There was concern for recoil after PTCA only. The vessel appeared very small- Documented in PN on 12/12 by Juan Whitney MD The patient underwent repeat angio. he was found to have significant stenosis within the that underwent PTCA-Documented in PN on 12/12 by Juan Whitney MD RISK FACTORS PTCA only performed with a 2.0 emerge at the ostium of the SVG tot he D1- Documented in laboratory technology teacher physician report on 12/12 by Juan Whitney MD TREATMENT: He underwent PTCA once again with a 2.0 x 12 mm emerge balloon catheter. After multiple views, it was decided to proceed with stent implantation. A2.25 x 12 mm synergy stent was placed successfully-Documented in PN on 12/12 by Juan Whitney MD Postdilatation performed with a 2.5 x 8 mm Emerge balloon catheter.-Documented in PN on 12/12 by Juan Whitney MD Successful stent to the SVG to diagonal with a 2.25x12 synergy stent post with 2.5 emerge-Documented in laboratory technology teacher physician report on 12/12 by Juan Whitney MD SAP Supervisor Pressing Department [employer] Winform Viewer (This form is maintained as a part of the permanent medical record) 2014 [employer]. All Rights Reserved [email or web address]
== END 2019-12-16 11:38 | disposition home or self-care (01) | DRG 247 ==
LOC: ERS 00:52 → 2NO 02:53 → CCU 12-14 13:36 → 2NO 12-15 16:55
PROVIDERS: ADMIT Internal Medicine Sleep Medicine; ATTEND Internal Medicine
PROC: 4A023N7 Measurement of Cardiac Sampling and Pressure, Left Heart, Percutaneous Approach (ICD-10-PCS; principal; 2019-12-13)
PROC: 027034Z Dilation of Coronary Artery, One Artery with Drug-eluting Intraluminal Device, Percutaneous Approach (ICD-10-PCS; 2019-12-13)
PROC: B2111ZZ Fluoroscopy of Multiple Coronary Arteries using Low Osmolar Contrast (ICD-10-PCS; 2019-12-13)
PROC: B2131ZZ Fluoroscopy of Multiple Coronary Artery Bypass Grafts using Low Osmolar Contrast (ICD-10-PCS; 2019-12-13)
PROC: 02713ZZ Dilation of Coronary Artery, Two Arteries, Percutaneous Approach (ICD-10-PCS; 2019-12-13)
DX: I21.4 Non-ST elevation (NSTEMI) myocardial infarction (principal); E87.1 Hypo-osmolality and hyponatremia; J44.1 Chronic obstructive pulmonary disease with (acute) exacerbation; I25.810 Atherosclerosis of coronary artery bypass graft(s) without angina pectoris; I48.0 Paroxysmal atrial fibrillation; E88.09 Other disorders of plasma-protein metabolism, not elsewhere classified; K44.9 Diaphragmatic hernia without obstruction or gangrene; G47.30 Sleep apnea, unspecified; E78.5 Hyperlipidemia, unspecified; M54.30 Sciatica, unspecified side; E11.65 Type 2 diabetes mellitus with hyperglycemia; F79 Unspecified intellectual disabilities; I10 Essential (primary) hypertension; G89.29 Other chronic pain; Z79.4 Long term (current) use of insulin; Z95.1 Presence of aortocoronary bypass graft
CPT/HCPCS: 36415; 36416; 71045; 71275; 76942; 80053; 80061; 82553; 83036; 83880; 84484; 85025; 85347; 85379; 92920; 92928; 92977; 93005; 93010; 93306; 93455; 93458; 93567; 93798; 94640; 94664; 96372; 99152; 99153; C1769; C1874; C1887; C9600; J1644; J1650; J2001; J2250; J2270; J3010; J3246; J7611; J7620; Q9967

== ENCOUNTER 2019-12-22 07:57 | Emergency (ER) | payer MEDICARE | END 2019-12-22 08:25 | disposition home or self-care (01) | LOC: ERS 07:57 | DX: I97.630 Postprocedural hematoma of a circulatory system organ or structure following a cardiac catheterization (principal); I48.91 Unspecified atrial fibrillation; E11.9 Type 2 diabetes mellitus without complications; I10 Essential (primary) hypertension; F79 Unspecified intellectual disabilities | CPT/HCPCS: 99283 ==

== ENCOUNTER 2020-03-27 06:29 | Observation (INO) | payer MEDICARE ==
[2020-03-27 07:13] LABS: #Eosinphils 0.1 thou/uL (0.0-0.7); #Lymphocytes 0.9 thou/uL (1.20-3.40); #Monocytes 0.8 thou/uL (0.11-0.59); %Basophils 0.4 % (0.0-1.0); %Eosinophils 1.2 % (0.0-10.0); %Lymphocytes 11.4 % (21.0-51.0); %Monocytes 10.6 % (0.0-10.0); %Neutrophils 76.3 % (42.0-75.0); Hemoglobin 16.3 g/dL (14.0-18.0); Mean Corpuscular HGB CONC 33.1 g/dL (32.0-36.0); Mean Corpuscular Hemoglobin 32.4 pg (27.0-31.0); Mean Corpuscular Volume 97.8 fL (78.0-98.0); Mean Platelet Volume 8.9 fL (7.4-10.4); Platelet Count 124 thou/uL (130-400); RBC Distribution Width 12.6 % (11.5-14.5); Red Blood Cell (RBC) Count 5.03 mill/uL (4.70-6.10); White Blood Cell (WBC) Count 7.9 thou/uL (4.8-10.8)
[2020-03-27 07:25] LABS: ALT (SGPT) 13 U/L (8-55); AST (SGOT) 18 U/L (5-34); Albumin 4.1 g/dL (3.4-4.8); Alkaline Phosphatase 146 U/L (40-110); Anion Gap 15 mmol/L (10-20); BUN (Urea Nitrogen) 32 mg/dL (8.4-25.7); Bilirubin, Total 0.6 mg/dL (0.2-1.2); CK (CPK) 106 U/L (30-200); Calc. Creatinine Clearance 0 mL/min (70-130); Calcium 9.1 mg/dL (7.8-10.44); Carbon Dioxide 22 mmol/L (23-31); Chloride 103 mmol/L (98-107); Estimated GFR-MDRD 65; Globulin 3.7 g/dL (2.4-3.5); Glucose 218 mg/dL (80-115); Potassium 4.7 mmol/L (3.5-5.1); Protein, Total 7.8 g/dL (5.8-8.1); Sodium 135 mmol/L (136-145)
--- NOTE | 2020-03-27 07:38 | RAD ---
EXAM: Single view of the chest HISTORY: Dyspnea and chest pain COMPARISON: 01/09/2020 FINDINGS: Single view of the chest shows a normal sized cardiomediastinal silhouette. The patient is status post sternotomy. There is no evidence of consolidation, mass, or pleural effusion. The bones are unremarkable. IMPRESSION: No evidence of acute cardiopulmonary disease
[2020-03-27] MEDS ORDERED: Aspirin Chewable 81 MG TAB ONE ×2 (08:13→08:19)
[2020-03-27 10:18] LABS: Troponin I Less than 0.010 ng/mL (< 0.028)
[2020-03-27] MEDS ORDERED: Acetaminophen 325 MG TAB PO PRN (11:35)
[2020-03-27] MEDS ORDERED: Senokot S 8.6-50 MG TAB PO PRN (11:35)
[2020-03-27 12:40] LABS: Troponin I Less than 0.010 ng/mL (< 0.028)
[2020-03-27] MEDS ORDERED: Morphine 2 MG/ML SYRINGE SLOW IVP PRN (13:04)
[2020-03-27 13:18] VITALS: BMI 35.7
[2020-03-27] MEDS ORDERED: HumaLOG 300 UNITS/3 ML VIAL SC PRN (13:54)
[2020-03-27] MEDS ORDERED: Dextrose 50% Abboject 50 ML SYRINGE SLOW IVP PRN (13:54)
[2020-03-27] MEDS ORDERED: Dextrose 5% in Water 1,000 ML IV PRN (13:54)
--- NOTE | 2020-03-27 16:02 | CT ---
CTA Angio Chest W WO Con 03/27/2020 1:53 PM Indication: Chest pain and elevated d-dimer Technique: Multiple CTA images were obtained of the thorax with IV contrast. 3-D rendering: MIP nano nstructed images were created and reviewed. Comparison: CT PE study dated January 09, 2020 Findings: Pulmonary arteries: No central or segmental pulmonary embolus is evident. Heart and Aorta: There are prominent coronary artery and thoracic aortic calcifications. There is po stsurgical change of a prior CABG which is similar appearing. Mediastinum:Small hiatal hernia. There is debris and fluid within the distal esophagus may reflect dy smotility or reflux. Lungs:The lungs are clear. Pleural space: Clear. Upper Abdomen: No acute abnormality. Osseous Structures: No acute osseous abnormality. Soft tissues:No abnormality. Other findings:None. Impression: No central or segmental pulmonary embolus. Small hiatal hernia with debris and fluid in the distal esophagus may reflect esophageal dysmotility or reflux.
[2020-03-27] MEDS: Carvedilol 25 MG TAB PO SCH (18:20)
[2020-03-27] MEDS ORDERED: Lidocaine 4% Topical Sol 50 ML BOT TOP SCH (18:45)
[2020-03-27] MEDS ORDERED: Pregabalin 75 MG CAP PO SCH (21:00)
--- NOTE | 2020-03-27 21:48 | HP ---
CHIEF COMPLAINT: Chest pain. HISTORY OF PRESENT ILLNESS: The patient is a 69-year-old male with history of CAD, status post stent and CABG, and history of hypertension, who presents to the hospital with complaints of chest pain x1 day. The patient stated that he woke up this morning around 5:00 a.m., having feeling a sharp chest pain to his left side. No radiation. He stated that he was a little short of breath. Denies any nausea, vomiting, any fevers or chills. He denied lifting anything heavy. The patient stated that he took 2 nitroglycerin and then came into the ER. He does complain of some headache. PAST MEDICAL HISTORY: As of the following; 1. He has a history of diabetes. 2. History of sleep apnea. Does not wear CPAP at home. 3. Hypertension. 4. Paroxysmal atrial fibrillation, refusing anticoagulation per documentation. 5. Chronic thrombocytopenia. 6. History of CAD, status post stent placement. PAST SURGICAL HISTORY: 1. He has had a CABG. 2. Hernia repair. 3. He has had a cardiac catheterization with stent placement. 4. Tonsillectomy. 5. Epicardial maze procedure for atrial fibrillation. ALLERGIES: HE IS ALLERGIC TO ATORVASTATIN AND METOPROLOL. MEDICATIONS: The patient does not really know his medications off hand. This is per his previous records. He is on; 1. Aspirin 81 mg daily. 2. Glipizide 10 mg twice a day. 3. Amlodipine 5 mg daily. 4. Benazepril 40 mg daily. 5. Lasix 40 mg daily. 6. Carvedilol 12.5 twice a day. 7. Plavix 75 mg daily. 8. Lyrica 75 mg at bedtime. SOCIAL HISTORY: The patient lives alone. He is a full code. He drinks about 32 ounces of alcohol on regular basis. Does not smoke. FAMILY HISTORY: No history of heart disease. REVIEW OF SYSTEMS: All negative except for the ones mentioned above in HPI. PHYSICAL EXAMINATION: VITAL SIGNS: As of the following; his temperature of 98.5, pulse 95, respiratory rate 20, saturating 93% on room air, and blood pressure 133/86. GENERAL: He is awake, alert, and oriented x3. Does not appear in distress. HEENT: Normocephalic and atraumatic. No lymphadenopathy noted. CV: Irregularly irregular. LUNGS: Clear to auscultation. No rhonchi or wheezes noted. Chest wall, pain reproducible on palpation to his left chest wall area. ABDOMEN: Soft and nontender. Bowel sounds present x2. EXTREMITIES: No edema. Pedal pulses present x2. NEUROVASCULAR LAYTON: The patient does have cognitive impairment. He is unable to really answer all his questions, but he is able to tell me his chief complaint. He is able to move all 4 extremities. No deficits noted. SKIN: No cuts, lesions, or bruises noted. LABORATORY DATA: Troponin x3 negative. EKG appears atrial fibrillation. WBC of 7.9, hemoglobin of 16.3, hematocrit of 49.2, and platelets of 124. Chemistry; sodium of 135, potassium of 4.7, BUN of 32, and creatinine of 1.12. His LFTs, alkaline phosphatase is mildly elevated at 146. His BNP is 125. ASSESSMENT AND PLAN: The patient is a 69-year-old male, who presents to the hospital with complaints of chest pain. 1. Chest pain appears to be atypical in nature. The differential will be cardiac, which would be less likely musculoskeletal. Most likely, also his D-dimer was mildly positive given it is corrected for his age cutoff. At this time, we will go ahead and do a CTA. I will consult Cardiology since he recently had a cardiac catheterization that was done on December 2019, where he had a PTCA at the ostium of the SVG graft. The patient also has severe multivessel disease. The patient also had an echocardiogram in December that indicated an ejection fraction of 50% to 55%. We will trend his troponins. We will continue his home medications. We will get medications listed from his Pharmacy. We will put him on aspirin and statin for now. 2. Diabetes. We will continue sliding scale insulin. 3. Sleep apnea. The patient does not wear a CPAP at home. 4. Atrial fibrillation, rate control. The patient is refusing anticoagulation per previous notes. When I asked him, he said that he does not know why he is not taking it, it is unclear. 5. Deep venous thrombosis prophylaxis. We will put the patient on SCDs. Job ID: [id number]
[2020-03-27] MEDS: Enoxaparin Sodium 120 MG/0.8 ML SYRINGE SC SCH (22:12)
[2020-03-27] MEDS: glipiZIDE 5 MG TAB PO SCH (22:13)
--- NOTE | 2020-03-28 00:16 | CON ---
DATE OF CONSULTATION: HISTORY OF PRESENT ILLNESS: The patient is a 69-year-old gentleman, who presents for evaluation of recurrent chest discomfort. The patient has a long history of coronary artery disease. The patient previously underwent coronary artery bypass graft surgery in 2015. He had coronary artery bypass graft surgery x4; CHRISTENSEN was placed to the LAD, saphenous vein graft to the diagonal, OM and PDA. The patient had ligation of the left atrial appendage. The patient also has a history of paroxysmal atrial fibrillation. He presented with recurrent chest pain a few months ago. The patient underwent a followup cardiac catheterization. He was found to have 3 patent coronary bypass grafts and subsequently underwent PTCA of the saphenous vein graft to the diagonal. The patient has continued to have recurrent chest discomfort. He presented to the emergency room after he took 2 nitroglycerin tablets without resolution of his chest pain. The patient at this time had no further chest discomfort. The patient states he has been compliant with his medications. PAST MEDICAL HISTORY: 1. Coronary artery disease. 2. Atrial fibrillation. 3. Hypertension. 4. Paroxysmal atrial fibrillation. 5. Dyslipidemia. 6. Status post left atrial appendage ligation. PAST SURGICAL HISTORY: Coronary artery bypass graft surgery x4. SOCIAL HISTORY: Nonsmoker. ALLERGIES: LIPITOR, MULTAQ, AND METFORMIN. FAMILY HISTORY: No strong family history of heart disease. REVIEW OF SYSTEMS: Unremarkable. PHYSICAL EXAMINATION: GENERAL: A well developed gentleman, in mild distress. VITAL SIGNS: Blood pressure 137/77. NECK: No jugular venous distention. LUNGS: Clear to auscultation. HEART: Regular rate and rhythm. Normal S1, S2. No murmurs. ABDOMEN: Nondistended. EXTREMITIES: Showed no edema. VASCULAR: Radial pulse 2+. LABORATORY DATA: White blood count 7.9, hemoglobin 16.3, hematocrit 49.2, platelets 124. Sodium 135, potassium 4.7, chloride 103, bicarbonate 22, BUN 32, creatinine 1.12. Troponin less than 0.01. EKG reveals atrial fibrillation with a nonspecific T-wave abnormality. IMPRESSION: 1. Unstable angina. 2. History of coronary artery disease, status post percutaneous transluminal coronary angioplasty of the saphenous vein graft to the diagonal. 3. Hypertension. 4. Dyslipidemia. PLAN: This gentleman presents with unstable angina. At this time, we will place the patient on Lovenox. We will recommend to increase the dose of his Ranexa. We will follow this patient with you through his hospitalization. Job ID: [id number] MTDD
[2020-03-28] MEDS ORDERED: Nitroglycerin 0.4mg/Hour PATCH TD SCH (09:00)
[2020-03-28] MEDS ORDERED: Furosemide 40 MG TAB PO SCH (09:00)
[2020-03-28] MEDS ORDERED: Lisinopril 20 MG TAB PO SCH (09:00)
[2020-03-28] MEDS ORDERED: Clopidogrel Bisulfate 75 MG TAB PO SCH (09:00)
[2020-03-28] MEDS ORDERED: Aspirin 81 mg Enteric Coated Tablet PO SCH (09:00)
[2020-03-28] MEDS ORDERED: Empagliflozin 25 MG TAB PO SCH (09:00)
[2020-03-28] MEDS ORDERED: Enoxaparin Sodium 40 MG/0.4 ML SYRINGE SC SCH (09:00)
[2020-03-28] MEDS: Carvedilol 25 MG TAB PO SCH ×2 (09:05→17:07)
[2020-03-28] MEDS: glipiZIDE 5 MG TAB PO SCH (09:05)
[2020-03-28] MEDS: Enoxaparin Sodium 120 MG/0.8 ML SYRINGE SC SCH (09:05)
--- NOTE | 2020-03-28 09:44 | PRG ---
DATE OF SERVICE: 03/28/2020 SUBJECTIVE: Mr. Wilson is currently doing well. No recurrent pain overnight. He states he had an episode of pain last evening. He took 2 nitroglycerins with no relief. He then proceeded to the emergency room. His EKG and enzymes have been stable. Mr. Wilson is a patient, I have been seen and evaluated in the past. He has severe small vessel disease. He underwent stent placement, saphenous vein graft to the diagonal branch. This stent did appear slightly large and the vessel stent. OBJECTIVE: VITAL SIGNS: Blood pressure 136/80, pulse 60, and temperature 97.9. LUNGS: Clear to auscultation. HEART: Irregularly irregular. ABDOMEN: Soft, nontender, and nondistended. EXTREMITIES: No edema. PERTINENT LABORATORY DATA: Hemoglobin 16.3 and hematocrit 49.2. IMPRESSION: 1. Angina. 2. Coronary artery disease. 3. Status post stent placed. 4. Status post bypass surgery. RECOMMENDATIONS: It has always been very difficult to read Mr. Wilson. He does have somewhat of a learning disability. I have been seeing and evaluated Mr. Wilson for some time. At this point, I do not feel the need to proceed with any further testing. He does have small vessel disease, diagnosed on angiography. His enzymes and EKG are stable. I would recommend adding nitroglycerin patch 0.4 mg, one place in a.m. and remove in p.m., in addition to Ranexa 1000 mg p.o. b.i.d. The patient would like to go home. Certainly reasonable. We will call Mr. Wilson in 1 week. Job ID: [id number]
[2020-03-28 11:22] VITALS: TEMP 98.1
[2020-03-28] MEDS ORDERED: Prevnar 13-Val Conj/PF 0.5 ML SYRINGE IM ONE (15:45)
[2020-03-28 17:05] VITALS: BP 168/80
--- NOTE | 2020-03-29 02:58 | DIS ---
DATE OF ADMISSION: 03/27/2020 DATE OF DISCHARGE: 03/28/2020 DISCHARGE DIAGNOSES: As of the followin. Angina. 2. Hypertension. 3. Coronary artery disease. HOSPITAL COURSE: The patient is a 69-year-old male, who initially presented to the hospital with chest pain. The patient at this time had a CTA, which was negative. He did have a cardiac cath a few months ago, which indicated he does have small vessel disease. He was put on Lovenox for 24 hours. His enzymes were negative. His EKG was negative. Cardiology was consulted. His Ranexa was increased to 1000 twice a day. The patient was then discharged home. His chest pain has resolved. PHYSICAL EXAMINATION: VITAL SIGNS: On discharge, 98.1, 64, 19, 97% on room air, 134/69. GENERAL: He is awake, alert, and oriented x3. Does not appear in distress. CV: S1, S2 present. No murmurs, rubs, or gallops. ABDOMEN: Soft and nontender. Bowel sounds are present x2. HOME MEDICATIONS: 1. Aspirin 81 mg daily. 2. Ranexa 1000 b.i.d. 3. Pepcid 20 mg twice a day. 4. Coreg 25 b.i.d. 5. Norvasc 5 mg daily. 6. Plavix 75 mg daily. 7. Jardiance 25 mg daily. 8. Lyrica 75 mg at bedtime. 9. 40 mg daily. 10. Lasix 1 daily. 11. Glipizide 2 tablets b.i.d. The patient will be discharged home. He is chest pain-free. He will follow up with his primary. Job ID: [id number]
--- NOTE | 2020-03-30 15:29 | EKG ---
Test Reason : Blood Pressure : / mmHG Vent. Rate : 069 BPM Atrial Rate : 066 BPM P-R Int : 000 ms QRS Dur : 124 ms QT Int : 418 ms P-R-T Axes : 000 -21 016 degrees QTc Int : 447 ms Atrial fibrillation Non-specific intra-ventricular conduction delay Nonspecific T wave abnormality , probably digitalis effect Abnormal ECG Confirmed by VIOLETA EATON, DELVIS ([id number]), sound editor SHARI REYES ([id number]) on 03/30/2020 3:28:33 PM Referred By: Confirmed By:DELVIS MCDANIEL MD
== END 2020-03-28 17:01 | disposition home or self-care (01) ==
LOC: ERS 06:29 → ERHOLD 08:28 → 2NO 12:51
PROVIDERS: ADMIT Internal Medicine; ATTEND Internal Medicine
DX: I25.110 Atherosclerotic heart disease of native coronary artery with unstable angina pectoris (principal); I10 Essential (primary) hypertension; E11.9 Type 2 diabetes mellitus without complications; G47.30 Sleep apnea, unspecified; I48.0 Paroxysmal atrial fibrillation; D69.6 Thrombocytopenia, unspecified; I25.2 Old myocardial infarction; E78.5 Hyperlipidemia, unspecified; Z79.02 Long term (current) use of antithrombotics/antiplatelets; Z79.84 Long term (current) use of oral hypoglycemic drugs; Z79.899 Other long term (current) drug therapy; Z88.8 Allergy status to other drugs, medicaments and biological substances; Z95.1 Presence of aortocoronary bypass graft; Z95.5 Presence of coronary angioplasty implant and graft
CPT/HCPCS: 36415; 36416; 71045; 71275; 80053; 82550; 83735; 83880; 84484; 85025; 85379; 93005; 96372; 96374; G0378; J1650; J2270

== ENCOUNTER 2020-11-06 14:05 | Outpatient (CLI) | payer MEDICARE, OTHER ==
[~2020-11-06 14:05] MED LIST: Iopamidol-370 76% 500 ML 1 ML ONE
--- NOTE | 2020-11-06 15:43 | CT ---
CT angiogram neck: 11/06/2020 HISTORY: Abnormal carotid Doppler ultrasound at an outside facility, assess for atherosclerotic disea se and carotid stenosis TECHNIQUE: Axial CT imaging at 2 mm intervals from the skull base through the lung apices with IV con trast using CT angiogram protocol. Coronal and sagittal 3-D reformatted imaging obtained. FINDINGS: Midline sternotomy wires are noted. The partially imaged lung apices are unremarkable. The imaged paranasal sinuses/mastoid air cells are well-aerated. The retroantral fat, parapharyngeal fat, parotid glands, and submandibular glands appear unremarkable bilaterally. The tonsillar pillars, epiglottis and preepiglottic fat, hyoid bone, thyroid cartilage, cricoid carti nikki, thyroid gland, and level of the glottis appear grossly unremarkable. The origin of the innominate artery, left subclavian artery, and right subclavian artery demonstrate no hemodynamically significant stenosis. There is atherosclerotic calcification at the origin of the right subclavian artery. Mild stenosis is suspected at the origin of the right common carotid art rika. The origin of the right common carotid artery is partially obscured by streak artifact associated with venous contrast media. There is mild stenosis at the origin of the left common caroti d artery on the basis of partially calcified plaque. There is prominent calcified atherosclerotic plaque involving the distal common carotid artery bilate rally, right greater than left, extending into the proximal internal carotid artery and external carotid artery bilaterally. Both the right and the left internal carotid arteries are occluded proxim ally at their origin. Bilateral vertebral arteries are patent. There is partially calcified plaque at the origin of the rig ht vertebral artery leading to significant stenosis, at least moderate in severity. There is probable mild stenosis at the origin of the left vertebral artery. The vertebral artery on the right demonstrates a moderate degree of distal stenosis at the axial leve l of the skull base secondary to partially calcified plaque, best seen on axial image 105. There are patent bilateral posterior communicating arteries. There is contrast media within the supra clinoid ICA bilaterally, likely primarily on the basis of the posterior communicating arteries. The external carotid arteries are relatively prominent bilaterally, which may provide some collateral ant erior circulation blood flow as well. There is significant degenerative change at the atlantoaxial interspace. There is disc space narrowin g at C5-6 and C6-7 and there is multilevel mid and lower cervical spine facet and uncovertebral osteophyte formation bilaterally. There is no worrisome lytic or blastic bone lesion. IMPRESSION: Bilateral proximal ICA occlusion. Patent bilateral posterior communicating arteries. Area s of right vertebral artery stenosis. CODE T Results sent to Dr. Zepeda via [employer] connect 3:40 PM 11/06/2020
== END 2020-11-06 14:06 | disposition home or self-care (01) ==
LOC: BICCT 14:05
PROVIDERS: ATTEND Internal Medicine Cardiovascular Disease
DX: I77.9 Disorder of arteries and arterioles, unspecified (principal); I65.23 Occlusion and stenosis of bilateral carotid arteries; I65.01 Occlusion and stenosis of right vertebral artery
CPT/HCPCS: 70498; 82565; Q9967

== ENCOUNTER 2021-03-15 10:51 | Inpatient (IN) | payer MEDICARE, OTHER ==
[2021-03-15] MEDS ORDERED: Nitroglycerin 2% Ointment 1 INCH/1 GM Packet ONE (11:13)
[2021-03-15] MEDS ORDERED: Aspirin Chewable 81 MG TAB ONE (11:13)
[2021-03-15 11:27] LABS: #Basophils 0.1 thou/uL (0.0-0.2); #Eosinphils 0.1 thou/uL (0.0-0.7); #Lymphocytes 1.2 thou/uL (1.20-3.40); #Monocytes 0.7 thou/uL (0.11-0.59); #Neutrophils 5.9 thou/uL (1.40-6.50); %Basophils 0.9 % (0.0-1.0); %Eosinophils 1.7 % (0.0-10.0); %Lymphocytes 15.1 % (21.0-51.0); %Monocytes 8.8 % (0.0-10.0); %Neutrophils 73.5 % (42.0-75.0); Hemoglobin 16.8 g/dL (14.0-18.0); Mean Corpuscular HGB CONC 34.9 g/dL (32.0-36.0); Mean Platelet Volume 8.6 fL (7.4-10.4); Platelet Count 158 thou/uL (130-400); RBC Distribution Width 12.3 % (11.5-14.5); Red Blood Cell (RBC) Count 4.78 mill/uL (4.70-6.10)
[2021-03-15 11:47] LABS: ALT (SGPT) 16 U/L (8-55); AST (SGOT) 16 U/L (5-34); Albumin 4.4 g/dL (3.4-4.8); Alkaline Phosphatase 141 U/L (40-110); Anion Gap 14 mmol/L (10-20); BUN (Urea Nitrogen) 19 mg/dL (8.4-25.7); Bilirubin, Total 0.9 mg/dL (0.2-1.2); CK (CPK) 100 U/L (30-200); Calc. Creatinine Clearance 0 mL/min (70-130); Calcium 9.4 mg/dL (7.8-10.44); Carbon Dioxide 24 mmol/L (23-31); Chloride 100 mmol/L (98-107); Globulin 3.3 g/dL (2.4-3.5); Glucose 151 mg/dL (80-115); Lipase 14 U/L (8-78); Potassium 4.5 mmol/L (3.5-5.1); Protein, Total 7.7 g/dL (5.8-8.1); Sodium 133 mmol/L (136-145)
[2021-03-15] MEDS ORDERED: Albuterol Sulfate 2.5 mg/3 ml Neb NEB PRN (14:25)
[2021-03-15] MEDS ORDERED: Acetaminophen 325 MG TAB PO PRN (14:25)
[2021-03-15] MEDS ORDERED: Dextrose 50% Abboject 50 ML SYRINGE SLOW IVP PRN (14:29)
[2021-03-15] MEDS ORDERED: Ondansetron PF 4 MG/2 ML Vial IVP PRN (14:29)
[2021-03-15] MEDS ORDERED: Ondansetron ODT 4 MG TAB PO PRN (14:29)
[2021-03-15] MEDS ORDERED: Dextrose 5% in Water 1,000 ML IV PRN (14:29)
[2021-03-15] MEDS ORDERED: Insulin Regular 300 UNITS/3 ML VIAL SC PRN ×2 (14:29)
[2021-03-15 14:35] LABS: Troponin I Less than 0.010 ng/mL (< 0.028)
[2021-03-15 15:15] VITALS: BMI 35.6
[2021-03-15] MEDS: Nitroglycerin 0.4 MG TAB (25 Tab Bottle) SL PRN ×3 (15:48→22:08)
[2021-03-15] MEDS ORDERED: Enoxaparin Sodium 100 MG/ML SYRINGE SC SCH (17:30)
[2021-03-15] MEDS ORDERED: Ketorolac Tromethamine 30 MG/ML VIAL IVP SCH (17:30)
[2021-03-15 17:35] LABS: Troponin I Less than 0.010 ng/mL (< 0.028)
[2021-03-15] MEDS: Carvedilol 25 MG TAB PO SCH (18:06)
[2021-03-15] MEDS: Mometasone 100 MCG/Formoterol 5 MCG 120 PUFF INHALER INH SCH (18:34)
[2021-03-15] MEDS: Pregabalin 75 MG CAP PO SCH (20:05)
[2021-03-15] MEDS: Famotidine 20 MG TAB PO SCH (20:05)
[2021-03-15] MEDS ORDERED: Non-Formulary Item 1 EACH (Carvedilol [Coreg] 12.5 MG Tab) PO SCH (21:00)
[2021-03-15] MEDS: Ketorolac Tromethamine 30 MG/ML VIAL IVP PRN (23:46)
[2021-03-16] MEDS ORDERED: Albuterol 200 PUFF (6.7GM INHALER) INH PRN (06:37)
[2021-03-16 06:46] LABS: SARS-CoV-2 NAA Rapid Test Not Detected (NotDetected)
[2021-03-16] MEDS: Mometasone 100 MCG/Formoterol 5 MCG 120 PUFF INHALER INH SCH (07:33)
[2021-03-16] MEDS: Albuterol 200 PUFF (6.7GM INHALER) INH SCH ×3 (07:33→18:54)
[2021-03-16] MEDS: Ketorolac Tromethamine 30 MG/ML VIAL IVP PRN (08:43)
[2021-03-16] MEDS: Carvedilol 25 MG TAB PO SCH ×2 (08:46→16:22)
[2021-03-16] MEDS: Empagliflozin 25 MG TAB PO SCH (08:46)
[2021-03-16] MEDS: Famotidine 20 MG TAB PO SCH ×2 (08:47→20:15)
[2021-03-16] MEDS: Furosemide 40 MG TAB PO SCH (08:47)
[2021-03-16] MEDS: Aspirin 81 mg Enteric Coated Tablet PO SCH (08:47)
[2021-03-16] MEDS: Lisinopril 20 MG TAB PO SCH (08:47)
[2021-03-16] MEDS: Amlodipine 5 MG TAB PO SCH (08:48)
[2021-03-16] MEDS: Clopidogrel Bisulfate 75 MG TAB PO SCH (08:48)
[2021-03-16] MEDS ORDERED: Enoxaparin Sodium 40 MG/0.4 ML SYRINGE SC SCH (09:00)
[2021-03-16] MEDS: Etodolac ER 400 mg Tablet PO SCH (16:21)
[2021-03-16] MEDS: Pregabalin 75 MG CAP PO SCH (20:14)
[2021-03-17] MEDS: Albuterol 200 PUFF (6.7GM INHALER) INH SCH ×3 (00:36→13:49)
[2021-03-17] MEDS: Ketorolac Tromethamine 30 MG/ML VIAL IVP PRN (04:28)
[2021-03-17] MEDS: Carvedilol 25 MG TAB PO SCH ×2 (09:34→16:29)
[2021-03-17] MEDS: Clopidogrel Bisulfate 75 MG TAB PO SCH (09:34)
[2021-03-17] MEDS: Amlodipine 5 MG TAB PO SCH (09:34)
[2021-03-17] MEDS: Famotidine 20 MG TAB PO SCH (09:35)
[2021-03-17] MEDS: Empagliflozin 25 MG TAB PO SCH (09:35)
[2021-03-17] MEDS: Aspirin 81 mg Enteric Coated Tablet PO SCH (09:35)
[2021-03-17] MEDS: Furosemide 40 MG TAB PO SCH (09:36)
[2021-03-17] MEDS: Lisinopril 20 MG TAB PO SCH (09:36)
[2021-03-17] MEDS: Etodolac ER 400 mg Tablet PO SCH (16:27)
[2021-03-17 16:46] VITALS: BP 132/78; TEMP 98.3
== END 2021-03-17 16:53 | disposition home or self-care (01) | DRG 204 ==
LOC: ERS 10:51 → ERHOLD 13:20 → 2SW 15:10 → OBSVTOIN 03-17 09:52
PROVIDERS: ADMIT Internal Medicine; ATTEND Internal Medicine
DX: R07.81 Pleurodynia (principal); E87.1 Hypo-osmolality and hyponatremia; I25.10 Atherosclerotic heart disease of native coronary artery without angina pectoris; E11.9 Type 2 diabetes mellitus without complications; I10 Essential (primary) hypertension; I48.0 Paroxysmal atrial fibrillation; E66.9 Obesity, unspecified; I44.7 Left bundle-branch block, unspecified; G47.33 Obstructive sleep apnea (adult) (pediatric); Z20.822 Contact with and (suspected) exposure to COVID-19; Z95.1 Presence of aortocoronary bypass graft; Z95.5 Presence of coronary angioplasty implant and graft; Z88.8 Allergy status to other drugs, medicaments and biological substances; Z79.02 Long term (current) use of antithrombotics/antiplatelets; Z79.82 Long term (current) use of aspirin; Z79.899 Other long term (current) drug therapy; Z90.89 Acquired absence of other organs; Z98.890 Other specified postprocedural states; Z91.19 Patient's noncompliance with other medical treatment and regimen; Z68.35 Body mass index [BMI] 35.0-35.9, adult
CPT/HCPCS: 36415; 36416; 71045; 71275; 80053; 82550; 83690; 83880; 84484; 85025; 85379; 93005; 93010; 94640; 96372; 96374; G0378; J1650; J1815; J1885; Q9967; U0002; U0005

== ENCOUNTER 2021-04-04 01:49 | Observation (INO) | payer MEDICARE, OTHER ==
[2021-04-04 02:22] LABS: #Basophils 0.1 thou/uL (0.0-0.2); #Eosinphils 0.2 thou/uL (0.0-0.7); #Lymphocytes 1.1 thou/uL (1.20-3.40); #Monocytes 0.8 thou/uL (0.11-0.59); #Neutrophils 5.2 thou/uL (1.40-6.50); %Basophils 0.8 % (0.0-1.0); %Eosinophils 2.4 % (0.0-10.0); %Lymphocytes 14.9 % (21.0-51.0); %Monocytes 10.4 % (0.0-10.0); %Neutrophils 71.5 % (42.0-75.0); Hemoglobin 16.7 g/dL (14.0-18.0); Mean Corpuscular HGB CONC 34.9 g/dL (32.0-36.0); Mean Corpuscular Hemoglobin 35.2 pg (27.0-31.0); Mean Platelet Volume 8.2 fL (7.4-10.4); Platelet Count 145 thou/uL (130-400); RBC Distribution Width 12.2 % (11.5-14.5); Red Blood Cell (RBC) Count 4.74 mill/uL (4.70-6.10); White Blood Cell (WBC) Count 7.3 thou/uL (4.8-10.8)
[2021-04-04 02:42] LABS: ALT (SGPT) 15 U/L (8-55); AST (SGOT) 15 U/L (5-34); Albumin 4.1 g/dL (3.4-4.8); Alkaline Phosphatase 112 U/L (40-110); Anion Gap 16 mmol/L (10-20); BUN (Urea Nitrogen) 29 mg/dL (8.4-25.7); Bilirubin, Total 0.4 mg/dL (0.2-1.2); Calc. Creatinine Clearance 0 mL/min (70-130); Carbon Dioxide 20 mmol/L (23-31); Chloride 106 mmol/L (98-107); Globulin 3.2 g/dL (2.4-3.5); Glucose 222 mg/dL (80-115); Potassium 4.5 mmol/L (3.5-5.1); Protein, Total 7.3 g/dL (5.8-8.1); Sodium 137 mmol/L (136-145)
[2021-04-04] MEDS ORDERED: Acetaminophen 325 MG TAB PO PRN (05:45)
[2021-04-04] MEDS ORDERED: Ondansetron PF 4 MG/2 ML Vial IVP PRN (05:45)
[2021-04-04] MEDS ORDERED: Ondansetron ODT 4 MG TAB SL PRN (05:45)
[2021-04-04 06:47] VITALS: BMI 35.4
[2021-04-04 06:54] LABS: Troponin I Less than 0.010 ng/mL (< 0.028)
[2021-04-04] MEDS ORDERED: ALBUTEROL SULFATE AD PO PRN (08:09)
[2021-04-04] MEDS ORDERED: Dextrose 50% Abboject 50 ML SYRINGE SLOW IVP PRN (08:10)
[2021-04-04] MEDS ORDERED: Dextrose 5% in Water 1,000 ML IV PRN (08:10)
[2021-04-04 08:28] LABS: Troponin I Less than 0.010 ng/mL (< 0.028)
[2021-04-04] MEDS ORDERED: Albuterol 200 PUFF (6.7GM INHALER) INH PRN (08:31)
[2021-04-04] MEDS ORDERED: Sucralfate 1 GM TAB PO SCH (08:45)
[2021-04-04] MEDS ORDERED: Furosemide 40 MG TAB PO SCH (09:00)
[2021-04-04] MEDS ORDERED: Non-Formulary Item 1 EACH (Carvedilol [Coreg] 12.5 MG Tab) PO SCH (09:00)
[2021-04-04] MEDS ORDERED: Fluticasone/Umeclidin/Vilanter [Trelegy Ellipta 100-62.5-25] INH SCH (09:00)
[2021-04-04] MEDS ORDERED: Non-Formulary Item 1 EACH (Fluticasone/Umeclidin/Vilanter [Trelegy Ellipta 100-62.5-25] 1 INH SCH (09:00)
[2021-04-04] MEDS ORDERED: Non-Formulary Item 1 EACH (Benazepril Hcl [Lotensin] 40 MG Tablet) PO SCH (09:00)
[2021-04-04] MEDS ORDERED: Morphine 2 MG/ML VIAL SLOW IVP PRN (09:12)
[2021-04-04] MEDS: Aspirin 81 mg Enteric Coated Tablet PO SCH (09:31)
[2021-04-04] MEDS: Clopidogrel Bisulfate 75 MG TAB PO SCH (09:32)
[2021-04-04] MEDS: Lisinopril 20 MG TAB PO SCH (09:32)
[2021-04-04] MEDS: Furosemide 40 MG TAB PO SCH (09:34)
[2021-04-04] MEDS: Carvedilol 25 MG TAB PO SCH ×2 (09:34→21:53)
[2021-04-04] MEDS: Famotidine 20 MG TAB PO SCH ×2 (09:35→21:53)
[2021-04-04] MEDS: Amlodipine 5 MG TAB PO SCH (09:35)
[2021-04-04] MEDS: Nitroglycerin 0.1mg/Hour PATCH TD SCH (09:52)
[2021-04-04] MEDS: HumaLOG 300 UNITS/3 ML VIAL SC PRN (12:15)
[2021-04-04] MEDS: Sucralfate 1 GM TAB PO SCH ×3 (12:16→21:53)
[2021-04-04] MEDS: Etodolac 200 MG CAP PO SCH (18:09)
[2021-04-04] MEDS ORDERED: Pregabalin 75 MG CAP PO SCH (21:00)
[2021-04-05] MEDS: Etodolac 200 MG CAP PO SCH ×2 (00:34→08:30)
[2021-04-05] MEDS: Amlodipine 5 MG TAB PO SCH (08:28)
[2021-04-05] MEDS: Furosemide 40 MG TAB PO SCH (08:28)
[2021-04-05] MEDS: Famotidine 20 MG TAB PO SCH (08:29)
[2021-04-05] MEDS: Carvedilol 25 MG TAB PO SCH (08:29)
[2021-04-05] MEDS: Clopidogrel Bisulfate 75 MG TAB PO SCH (08:29)
[2021-04-05] MEDS: Lisinopril 20 MG TAB PO SCH (08:29)
[2021-04-05] MEDS: Sucralfate 1 GM TAB PO SCH ×2 (08:29→12:06)
[2021-04-05] MEDS: Aspirin 81 mg Enteric Coated Tablet PO SCH (08:33)
[2021-04-05] MEDS: Nitroglycerin 0.1mg/Hour PATCH TD SCH (09:50)
[2021-04-05 11:22] VITALS: BP 133/65; TEMP 97.6
[2021-04-05] MEDS: HumaLOG 300 UNITS/3 ML VIAL SC PRN (12:06)
== END 2021-04-05 13:50 | disposition home or self-care (01) ==
LOC: ERS 01:49 → 2SE 04:04
PROVIDERS: ADMIT Student in an Organized Health Care Education/Training Program; ATTEND Student in an Organized Health Care Education/Training Program
DX: R07.81 Pleurodynia (principal); I25.10 Atherosclerotic heart disease of native coronary artery without angina pectoris; I48.91 Unspecified atrial fibrillation; E11.9 Type 2 diabetes mellitus without complications; I10 Essential (primary) hypertension; E78.5 Hyperlipidemia, unspecified; E78.00 Pure hypercholesterolemia, unspecified; Z79.02 Long term (current) use of antithrombotics/antiplatelets; Z79.82 Long term (current) use of aspirin; Z79.84 Long term (current) use of oral hypoglycemic drugs; Z79.899 Other long term (current) drug therapy; Z88.8 Allergy status to other drugs, medicaments and biological substances; Z95.1 Presence of aortocoronary bypass graft; Z95.5 Presence of coronary angioplasty implant and graft
CPT/HCPCS: 36415; 36416; 71045; 80053; 84484; 85025; 93005; G0378; J1815

== ENCOUNTER 2023-05-26 02:56 | Inpatient (IN) | payer MEDICARE ==
[2023-05-26] MEDS ORDERED: fentaNYL 50 mcg/mL 1 mL Vial ONE (03:16)
[2023-05-26 03:56] LABS: #Basophils 0.1 thou/uL (0.0-0.2); #Eosinphils 0.2 thou/uL (0.0-0.7); #Neutrophils 8.3 thou/uL (1.40-6.50); %Basophils 0.5 % (0.0-1.0); %Eosinophils 2.1 % (0.0-10.0); %Lymphocytes 5.5 % (21.0-51.0); %Monocytes 9.3 % (0.0-10.0); %Neutrophils 81.7 % (42.0-75.0); Hematocrit 42.1 % (42.0-52.0); Hemoglobin 14.5 g/dL (14.0-18.0); Mean Corpuscular HGB CONC 34.4 g/dL (32.0-36.0); Mean Corpuscular Hemoglobin 33.2 pg (27.0-31.0); Mean Corpuscular Volume 96.3 fl (78.0-98.0); Mean Platelet Volume 10.9 fL (7.4-10.4); Platelet Count 132 10x3/uL (130-400); Red Blood Cell (RBC) Count 4.37 mill/uL (4.70-6.10); White Blood Cell (WBC) Count 10.2 10x3/uL (4.8-10.8)
[2023-05-26 04:10] LABS: INR-International Normal Ratio 1.1; Prothrombin Time 14.4 sec (12.0-14.7)
[2023-05-26 04:11] LABS: PTT 29.7 sec (22.9-36.1)
[2023-05-26 04:22] LABS: ALT (SGPT) 13 U/L (8-55); AST (SGOT) 15 U/L (5-34); Albumin 3.4 g/dL (3.4-4.8); Alkaline Phosphatase 118 U/L (40-110); Anion Gap 15 mmol/L (10-20); BUN (Urea Nitrogen) 32 mg/dL (8.4-25.7); Bilirubin, Total 0.7 mg/dL (0.2-1.2); Calc. Creatinine Clearance 0 mL/min (70-130); Calcium 8.8 mg/dL (7.8-10.44); Carbon Dioxide 20 mmol/L (23-31); Chloride 103 mmol/L (98-107); Estimated GFR 56; Globulin 3.1 g/dL (2.4-3.5); Glucose 282 mg/dL (83-110); Potassium 3.4 mmol/L (3.5-5.1); Protein, Total 6.5 g/dL (5.8-8.1); Sodium 135 mmol/L (136-145)
[2023-05-26 04:24] LABS: Troponin I 0.011 ng/mL (< 0.028)
[2023-05-26] MEDS ORDERED: Morphine 4 MG/ML VIAL ONE (04:56)
[2023-05-26] MEDS ORDERED: Ondansetron PF 4 MG/2 ML Vial IVP PRN (05:00)
[2023-05-26] MEDS ORDERED: Sodium Chloride 0.9% 1,000 ML IV SCH ×2 (05:00→05:45)
[2023-05-26] MEDS ORDERED: Ondansetron ODT 4 MG TAB SL PRN (05:00)
[2023-05-26] MEDS ORDERED: Acetaminophen 325 MG TAB PO PRN (05:00)
[2023-05-26] MEDS ORDERED: Dextrose 50% Abboject 50 ML SYRINGE SLOW IVP PRN (05:34)
[2023-05-26] MEDS ORDERED: Ipratropium/Albuterol 3 ML NEB NEB PRN (05:34)
[2023-05-26] MEDS ORDERED: Glucagon 1 MG/ML KIT IM PRN (05:34)
[2023-05-26] MEDS ORDERED: Dextrose 5% in Water 1,000 ML IV PRN (05:34)
[2023-05-26] MEDS ORDERED: Albuterol 200 PUFF (6.7GM INHALER) INH PRN (05:37)
[2023-05-26] MEDS ORDERED: Acetaminophen 325 MG TAB PO SCH (05:45)
[2023-05-26] MEDS: Acetaminophen 500 MG TAB PO SCH ×4 (06:31→23:04)
[2023-05-26 08:22] LABS: Magnesium 2.4 mg/dL (1.6-2.6); Phosphorus 2.8 mg/dL (2.3-4.7)
[2023-05-26] MEDS: Famotidine/PF 20 mg/2ml Vial SLOW IVP SCH ×2 (08:54→20:42)
[2023-05-26] MEDS ORDERED: Carvedilol 25 MG TAB PO SCH (09:00)
[2023-05-26] MEDS ORDERED: CEFAZOLIN 2 GM in Sodium Chloride 0.9% 100 ML IVPB SCH (09:30)
[2023-05-26] MEDS: Morphine 4 MG/ML VIAL SLOW IVP PRN ×3 (09:43→20:41)
[2023-05-26] MEDS: HumaLOG 300 UNITS/3 ML VIAL SC PRN ×2 (14:04→18:18)
[2023-05-26] MEDS: traMADol HCl 50 MG TAB PO PRN (18:16)
[2023-05-26] MEDS: Pregabalin 75 MG CAP PO SCH (20:41)
[2023-05-26] MEDS: Sacubitril 24MG/Valsartan 26 MG TAB PO SCH (20:42)
[2023-05-26] MEDS: Sodium Chloride 0.9% 1,000 ML IV SCH (23:03)
[2023-05-27] MEDS: Morphine 4 MG/ML VIAL SLOW IVP PRN ×3 (01:23→11:53)
[2023-05-27] MEDS: Acetaminophen 500 MG TAB PO SCH ×3 (05:23→18:23)
[2023-05-27 06:00] LABS: #Basophils 0.1 thou/uL (0.0-0.2); #Eosinphils 0.4 thou/uL (0.0-0.7); #Monocytes 1.1 thou/uL (0.11-0.59); %Basophils 0.6 % (0.0-1.0); %Lymphocytes 9.2 % (21.0-51.0); %Monocytes 11.4 % (0.0-10.0); %Neutrophils 74.2 % (42.0-75.0); Hematocrit 36.5 % (42.0-52.0); Hemoglobin 12.4 g/dL (14.0-18.0); Mean Corpuscular Hemoglobin 33.6 pg (27.0-31.0); Mean Corpuscular Volume 98.9 fl (78.0-98.0); Mean Platelet Volume 10.6 fL (7.4-10.4); Platelet Count 118 10x3/uL (130-400); RBC Distribution Width 13.1 % (11.5-14.5); Red Blood Cell (RBC) Count 3.69 mill/uL (4.70-6.10); White Blood Cell (WBC) Count 9.4 10x3/uL (4.8-10.8)
[2023-05-27 06:16] LABS: Phosphorus 2.6 mg/dL (2.3-4.7)
[2023-05-27 06:19] LABS: Anion Gap 12 mmol/L (10-20); BUN (Urea Nitrogen) 18 mg/dL (8.4-25.7); Calc. Creatinine Clearance 132 mL/min (70-130); Calcium 8.1 mg/dL (7.8-10.44); Carbon Dioxide 23 mmol/L (23-31); Chloride 102 mmol/L (98-107); Estimated GFR 98; Glucose 89 mg/dL (83-110); Potassium 3.7 mmol/L (3.5-5.1); Sodium 133 mmol/L (136-145)
[2023-05-27] MEDS: Sacubitril 24MG/Valsartan 26 MG TAB PO SCH ×2 (08:54→20:23)
[2023-05-27] MEDS: Famotidine/PF 20 mg/2ml Vial SLOW IVP SCH ×2 (08:54→20:23)
[2023-05-27] MEDS: Sodium Chloride 0.9% 1,000 ML IV SCH (09:03)
[2023-05-27] MEDS ORDERED: Lidocaine 1% PF 5 ML VIAL ONE (10:27)
[2023-05-27] MEDS ORDERED: Dexamethasone 20 MG/5 ML VIAL ONE (10:27)
[2023-05-27] MEDS ORDERED: PROPOFOL 200 MG/20 ML VIAL ONE (10:27)
[2023-05-27] MEDS ORDERED: Rocuronium Bromide 10 MG/ML (10ML VIAL) ONE (10:27)
[2023-05-27] MEDS ORDERED: Ondansetron PF 4 MG/2 ML Vial ONE (10:27)
[2023-05-27] MEDS ORDERED: fentaNYL PF 100 MCG/2 ML SYRINGE ONE (13:57)
[2023-05-27] MEDS ORDERED: Phenylephrine 10 MG/ML VIAL ONE (13:57)
[2023-05-27] MEDS ORDERED: fentaNYL 50 mcg/mL 1 mL Vial ONE ×5 (14:30→17:59)
[2023-05-27 14:55] VITALS: BMI 32.6
[2023-05-27] MEDS ORDERED: SUGAMMADEX SODIUM 200 MG/2 ML VIAL ONE (16:27)
[2023-05-27] MEDS ORDERED: Ondansetron HCl/PF 4 MG/2 ML Vial IVP PRN (16:56)
[2023-05-27] MEDS: CEFAZOLIN 2 GM in Sodium Chloride 0.9% 100 ML IVPB SCH (20:22)
[2023-05-27] MEDS: Pregabalin 75 MG CAP PO SCH (20:22)
[2023-05-27] MEDS: traMADol HCl 50 MG TAB PO PRN (20:23)
[2023-05-27] MEDS: HumaLOG 300 UNITS/3 ML VIAL SC PRN (20:36)
[2023-05-28] MEDS: Acetaminophen 500 MG TAB PO SCH ×5 (00:59→23:46)
[2023-05-28] MEDS: CEFAZOLIN 2 GM in Sodium Chloride 0.9% 100 ML IVPB SCH (06:15)
[2023-05-28] MEDS: Famotidine/PF 20 mg/2ml Vial SLOW IVP SCH ×2 (09:51→20:22)
[2023-05-28] MEDS: Polyethylene Glycol 3350 17 GM Packet PO SCH (09:52)
[2023-05-28] MEDS: Sacubitril 24MG/Valsartan 26 MG TAB PO SCH ×2 (09:52→20:24)
[2023-05-28] MEDS: Senokot S 8.6-50 MG TAB PO SCH ×2 (09:52→20:21)
[2023-05-28] MEDS: Aspirin 81 mg Enteric Coated Tablet PO SCH ×2 (09:52→20:21)
[2023-05-28] MEDS: traMADol HCl 50 MG TAB PO PRN ×2 (11:27→17:58)
[2023-05-28] MEDS: Morphine 2 MG/ML VIAL SLOW IVP PRN ×3 (14:00→23:45)
[2023-05-28 15:00] LABS: #Monocytes 1.3 thou/uL (0.11-0.59); #Neutrophils 9.8 thou/uL (1.40-6.50); %Basophils 0.2 % (0.0-1.0); %Eosinophils 0.1 % (0.0-10.0); %Lymphocytes 8.6 % (21.0-51.0); %Monocytes 10.4 % (0.0-10.0); Hemoglobin 11.4 g/dL (14.0-18.0); Mean Corpuscular HGB CONC 34.5 g/dL (32.0-36.0); Mean Corpuscular Hemoglobin 33.4 pg (27.0-31.0); Mean Corpuscular Volume 96.8 fl (78.0-98.0); Mean Platelet Volume 10.8 fL (7.4-10.4); Platelet Count 133 10x3/uL (130-400); Red Blood Cell (RBC) Count 3.41 mill/uL (4.70-6.10); White Blood Cell (WBC) Count 12.2 10x3/uL (4.8-10.8)
[2023-05-28] MEDS: HumaLOG 300 UNITS/3 ML VIAL SC PRN (17:58)
[2023-05-28] MEDS: Pregabalin 75 MG CAP PO SCH (20:21)
[2023-05-29] MEDS: traMADol HCl 50 MG TAB PO PRN ×2 (02:07→17:23)
[2023-05-29] MEDS: Acetaminophen 500 MG TAB PO SCH ×4 (05:21→23:55)
[2023-05-29 05:43] LABS: #Eosinphils 0.1 thou/uL (0.0-0.7); #Monocytes 0.9 thou/uL (0.11-0.59); #Neutrophils 6.5 thou/uL (1.40-6.50); %Basophils 0.2 % (0.0-1.0); %Eosinophils 1.4 % (0.0-10.0); %Lymphocytes 12.2 % (21.0-51.0); %Monocytes 10.5 % (0.0-10.0); %Neutrophils 74.9 % (42.0-75.0); Hematocrit 32.5 % (42.0-52.0); Hemoglobin 11.3 g/dL (14.0-18.0); Mean Corpuscular HGB CONC 34.8 g/dL (32.0-36.0); Mean Corpuscular Hemoglobin 33.9 pg (27.0-31.0); Mean Corpuscular Volume 97.6 fl (78.0-98.0); Mean Platelet Volume 10.8 fL (7.4-10.4); Platelet Count 133 10x3/uL (130-400); RBC Distribution Width 13.1 % (11.5-14.5); Red Blood Cell (RBC) Count 3.33 mill/uL (4.70-6.10); White Blood Cell (WBC) Count 8.6 10x3/uL (4.8-10.8)
[2023-05-29] MEDS: Polyethylene Glycol 3350 17 GM Packet PO SCH (09:24)
[2023-05-29] MEDS: Famotidine/PF 20 mg/2ml Vial SLOW IVP SCH ×2 (09:24→20:53)
[2023-05-29] MEDS: Aspirin 81 mg Enteric Coated Tablet PO SCH ×2 (09:25→20:53)
[2023-05-29] MEDS: Sacubitril 24MG/Valsartan 26 MG TAB PO SCH ×2 (09:25→20:52)
[2023-05-29] MEDS: Senokot S 8.6-50 MG TAB PO SCH ×2 (09:25→20:53)
[2023-05-29] MEDS: HumaLOG 300 UNITS/3 ML VIAL SC PRN (20:51)
[2023-05-29] MEDS: Pregabalin 75 MG CAP PO SCH (20:52)
[2023-05-30] MEDS: traMADol HCl 50 MG TAB PO PRN ×3 (02:21→20:10)
[2023-05-30] MEDS: Acetaminophen 500 MG TAB PO SCH ×4 (05:00→23:16)
[2023-05-30] MEDS: Senokot S 8.6-50 MG TAB PO SCH ×2 (09:23→20:09)
[2023-05-30] MEDS: Sacubitril 24MG/Valsartan 26 MG TAB PO SCH ×2 (09:23→20:10)
[2023-05-30] MEDS: Aspirin 81 mg Enteric Coated Tablet PO SCH ×2 (09:24→20:10)
[2023-05-30] MEDS: Famotidine 20 MG TAB PO SCH ×2 (09:24→20:09)
[2023-05-30] MEDS: Polyethylene Glycol 3350 17 GM Packet PO SCH (09:25)
[2023-05-30] MEDS: Pregabalin 75 MG CAP PO SCH (20:10)
[2023-05-31] MEDS: traMADol HCl 50 MG TAB PO PRN ×3 (05:25→16:03)
[2023-05-31] MEDS: Acetaminophen 500 MG TAB PO SCH ×4 (05:26→23:28)
[2023-05-31] MEDS: Sacubitril 24MG/Valsartan 26 MG TAB PO SCH ×2 (09:37→20:26)
[2023-05-31] MEDS: Senokot S 8.6-50 MG TAB PO SCH ×2 (09:38→20:26)
[2023-05-31] MEDS: Famotidine 20 MG TAB PO SCH ×2 (09:38→20:26)
[2023-05-31] MEDS: Aspirin 81 mg Enteric Coated Tablet PO SCH ×2 (09:38→20:27)
[2023-05-31] MEDS: Polyethylene Glycol 3350 17 GM Packet PO SCH (09:39)
[2023-05-31] MEDS: Pregabalin 75 MG CAP PO SCH (20:26)
[2023-06-01] MEDS: traMADol HCl 50 MG TAB PO PRN ×4 (00:32→17:47)
[2023-06-01] MEDS: Acetaminophen 500 MG TAB PO SCH ×5 (00:32→17:46)
[2023-06-01] MEDS: Polyethylene Glycol 3350 17 GM Packet PO SCH (10:03)
[2023-06-01] MEDS: Aspirin 81 mg Enteric Coated Tablet PO SCH (10:03)
[2023-06-01] MEDS: Sacubitril 24MG/Valsartan 26 MG TAB PO SCH (10:04)
[2023-06-01] MEDS: Senokot S 8.6-50 MG TAB PO SCH (10:04)
[2023-06-01] MEDS: Famotidine 20 MG TAB PO SCH (10:04)
[2023-06-01 17:02] VITALS: BP 130/73; TEMP 98.2
== END 2023-06-01 18:30 | DRG 481 ==
LOC: ERS 02:56 → SURG A 04:43
PROVIDERS: ADMIT Surgery; ATTEND Surgery
PROC: 0QS706Z Reposition Left Upper Femur with Intramedullary Internal Fixation Device, Open Approach (ICD-10-PCS; principal; 2023-05-27)
DX: S72.142A Displaced intertrochanteric fracture of left femur, initial encounter for closed fracture (principal); D62 Acute posthemorrhagic anemia; I48.20 Chronic atrial fibrillation, unspecified; I50.32 Chronic diastolic (congestive) heart failure; E11.9 Type 2 diabetes mellitus without complications; I11.0 Hypertensive heart disease with heart failure; I25.10 Atherosclerotic heart disease of native coronary artery without angina pectoris; F10.90 Alcohol use, unspecified, uncomplicated; K59.00 Constipation, unspecified; I73.9 Peripheral vascular disease, unspecified; I65.23 Occlusion and stenosis of bilateral carotid arteries; W18.30XA Fall on same level, unspecified, initial encounter; Z88.8 Allergy status to other drugs, medicaments and biological substances; Z90.89 Acquired absence of other organs; Z98.890 Other specified postprocedural states; Z79.84 Long term (current) use of oral hypoglycemic drugs; Z79.899 Other long term (current) drug therapy; Z95.1 Presence of aortocoronary bypass graft; Z79.02 Long term (current) use of antithrombotics/antiplatelets
CPT/HCPCS: 36415; 36416; 51702; 70450; 71045; 72125; 80048; 80053; 83735; 83880; 84100; 84484; 85025; 85610; 85730; 93005; 93306; 93880; 96374; 96375; 97139; C1713; G0390; J1100; J1815; J2270; J2272; J2370; J2405; J2704; J3010; J3490; J7030; J7050; S0028